=== PATIENT | male | born 1935 | race Caucasian/White ===

== ENCOUNTER → 2017-10-23 13:53 | Outpatient (CLI) | payer MEDICARE ==
[2013-01-07 11:31] VITALS: BMI 44.1
[~2017-10-23 13:53] MED LIST: BAYER CHEWABLE81 MG PO; CARDURA4 MG PO; CYCLOBENZAPRINE10 MG PO; EFFIENT10 MG PO; GABAPENTIN100 MG PO; HYDROCODON-ACE1 EAC7 PO; IBUPROFEN200 MG PO; KLOR-CON M2020 MEQ PO; LASIX40 MG PO; LEVOTHROID150 MCG PO; ZANTAC150 MG PO
== END | disposition home or self-care (01) ==
LOC: EDBD 13:53 → D.MRI 13:53
DX: M48.061 Spinal stenosis, lumbar region without neurogenic claudication (principal); G62.9 Polyneuropathy, unspecified

== ENCOUNTER 2017-11-05 08:46 | Emergency (ER) | payer MEDICARE ==
[2013-01-07 11:31] VITALS: BMI 44.1
[~2017-11-05 08:46] MED LIST changes: -CYCLOBENZAPRINE10 MG PO; -GABAPENTIN100 MG PO; -HYDROCODON-ACE1 EAC7 PO
[2017-11-07] MEDS ORDERED: CYCLOBENZAPRINE10 MG PO (07:43)
[2017-11-07] MEDS ORDERED: HYDROCODON-ACE1 EAC7 PO (07:46)
[2017-11-07] MEDS ORDERED: GABAPENTIN100 MG PO (07:48)
== END 2017-11-05 09:40 | disposition home or self-care (01) ==
LOC: EDBD 08:46 → D.ER 08:46
DX: M54.5 Low back pain (principal); M25.511 Pain in right shoulder; J44.9 Chronic obstructive pulmonary disease, unspecified; E07.9 Disorder of thyroid, unspecified

== ENCOUNTER 2018-03-24 09:26 | Inpatient (IN) | payer MEDICARE ==
[~2018-03-24] VITALS: Ht 177.8 cm; Wt 121.8 kg
--- NOTE | ~2018-03-24 | MORECARE ---
CASE MANAGEMENT DISCHARGE SUMMARY PATIENT: RASHAWN FAITH UNIT: [id number] ADM DATE: 03/24/18 AGE: 83 : 36 SEX: M ROOM/BED: [facility] AUTHOR: DANNYDOC PHYSICIAN: REFERRING PHYSICIAN: JANELLE OLIVEIRA MD DATE OF SERVICE: 03/30/18 Discharge Plan Patient Name: RASHAWN FAITH Facility: [facility]:[place] : 1935 Planned Disposition: Home or Self Care Anticipated Discharge Date: Discharge Date: Expected LOS: Initial Reviewer: [email or web address] Initial Review Date: 03/30/2018 Generated: 03/30/18 1:16 pm Comments DCP- Discharge Planning Updated by [email or web address]: Sandrine Singh on 03/30/18 11:[address] Patient Name: RASHAWN FAITH Admission Status: Elective Accout number: [id number] Admission Date: 03-24-2018 : 1935 Admission Diagnosis:ACUTE EMBOLISM AND THOMBOS UNSP DEEP VEINS OF R LOW EXT Attending: JANELLE OLIVEIRA Current LOS: 6 Anticipated DC Date: Planned Disposition: Home or Self Care Primary Insurance: MEDICARE A & B Discharge Planning Comments: CM met with patient at bedside after obtaining verbal consent. Patient states he plans on returning home after discharge with his family. Patient states he will have family transport him home via private vehicle. Patient denies any discharge needs at this time. CM will continue to follow and assist as needed for discharge planning / needs. Machine Greaser: Sandrine Singh DCPIA - Discharge Planning Initial Assessment Updated by [email or web address]: Sandrine Singh on 03/30/18 12:13 pm * Is the patient Alert and Oriented? Yes * How many steps to enter\exit or inside your home? 13 to bed * PCP * Pharmacy [facility] * Preadmission Environment Home with Family * ADLs Independent * Equipment Rolling Walker * Other Equipment cane * List name and contact numbers for known caregivers / representatives who currently or will assist patient after discharge: Sushma Faith daughter [phone] * Verbal permission to speak to the caregivers and representatives has been obtained from the patient. N/A * Community resources currently utilized None * Additional services required to return to the preadmission environment? No * Can the patient safely return to the preadmission environment? Yes * Has this patient been hospitalized within the prior 30 days at any hospital? No Patient Name: RASHAWN FAITH Page 40801 at 1216 All edits/amendments must be made on the electronic document DICTATION DATE: 03/30/181215 METERMAN: LISA 03/30/181215 RPT#: [id number] DC DATE: STATUS: ADM IN [facility] [address] [place] [address] END OF REPORT
--- NOTE | ~2018-03-24 | HP ---
PATIENT: RASHAWN WATSON MEDICAL RECORD: [id number] ACCOUNT: [id number] LOCATION:[address] : 37 ADMISSION DATE: 03/24/18 PCP: JANELLE OLIVEIRA MD HISTORY AND PHYSICAL EXAMINATION REASON FOR ADMISSION: Exertional shortness of breath. HISTORY OF PRESENT ILLNESS: The patient is an 83-year-old male with history of morbid obesity, who has had previous DVT and PE. He presented to the office today after a 6-day history of increasing edema of his right lower extremity and increasing dyspnea on exertion. He had a little chest pain as well when he would walk. Denied any hemoptysis. He states he had a nephew in town and has been sitting in a chair a quite a bit and his support hose had been very tight around his ankle. He was worried he might have another DVT. Denies any exertional chest pain. PAST MEDICAL HISTORY: Morbid obesity; remote history of massive pulmonary emboli, on chronic anticoagulation; history of coronary artery disease, post-PTCA of LAD and right coronary artery by Dr. 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 Lemus in October of this year. PAST SURGICAL HISTORY: PTCA of LAD and right coronary artery in 2012, penile implant, and retinal detachment with laser retinal therapy. ALLERGIES: None known. FAMILY HISTORY: Noncontributory. SOCIAL HISTORY: Lives with his , living with his daughter, who is an senior designer. He is retired. Nonsmoker and nondrinker currently. MEDICATIONS: Aspirin 81 mg a day, Flexeril 10 mg p.o. q. 8 hours p.r.n. lumbago, Effient 10 mg p.o. daily, doxazosin 4 mg p.o. daily, pravastatin 20 mg at bedtime, Neurontin 300 mg p.o. in the evening, [place] 5/325 one q. 4 hours for severe back pain, K-Dur 10 mEq p.o. daily, Lasix 40 mg p.o. q.a.m., Zantac 150 mg p.o. b.i.d., and levothyroxine 150 mcg p.o. q.a.m. REVIEW OF SYSTEMS: CONSTITUTIONAL: He has been fatigued, more so for the last week. No fever. HEENT: No recent visual change, sinus congestion, or sore throat. He has trouble hearing. RESPIRATORY: Increasing exertional dyspnea for the last 6 days. No hemoptysis, but he states he has little anterior chest pain in the lower sternal area, radiates right to left. Denies any radiation of pain into his neck, jaw, or arms. GASTROINTESTINAL: No nausea or vomiting. GENITOURINARY: He has mild nocturia. No dysuria. ENDOCRINE: Denies polyuria, polydipsia, heat or cold intolerance. NEUROLOGIC: No history of stroke, TIA, or vascular headaches. MUSCULOSKELETAL: Chronic lumbago and sciatica, which are improved. Neurogenic claudication has improved. INTEGUMENT: He has had some increased edema and swelling of his right lower HISTORY AND PHYSICAL [id number] VOWELL,RASHAWN D extremity, below the knee. PHYSICAL EXAMINATION: VITAL SIGNS: Temperature 97.7, pulse 68, respirations 18, and blood pressure 120/76 with sat of 90% on room air. HEENT: Normocephalic. Eyes are clear. He is hard of hearing. NECK: No bruits, masses, or JVD. CHEST: Distant breath sounds without wheezes or rales. HEART: Regular rate without MGR. PMI appropriate. ABDOMEN: Morbidly obese and nontender throughout. Bowel sounds are active. GENITOURINARY: Shows penile implant. EXTREMITIES: He has 4+ pitting edema of his right lower extremity from the knee down. He has erythema of the distal mid calf to the foot. Left lower extremity shows 2+ edema. Homans' sign is positive on the right. LABORATORY DATA AND DIAGNOSTIC DATA: EKG; sinus rhythm, no acute changes. Chest x-ray; no acute abnormality. Venous Doppler shows noncompression of the right lower extremity at posterior tibial vein and a 3.6-cm Garcia's cyst noted. D-dimer is markedly elevated at 11.91. ASSESSMENT: DVT, right lower extremity, probable pulmonary embolus; renal azotemia; morbid obesity; history of CAD; hypothyroidism; and lumbar disc disease. PLAN: The patient is admitted for bed rest to telemetry. Supplemental O2. We will place on Lovenox 1 mg/kg subcutaneously q. 12 hours. Schedule CTA or V/Q scan. Pulmonary consult if indicated. TRANSINT:[id number] Voice Confirmation ID: [id number] DOCUMENT ID: [id number] JANELLE OLIVEIRA MD at 0502 CC: [id number] DICTATION DATE: 03/24/18 173 MUNICIPAL FIREFIGHTER: 03/24/18 1904 ADM IN [facility] [address] [place] [id number]
--- NOTE | ~2018-03-24 | MORECARE ---
CASE MANAGEMENT DISCHARGE SUMMARY PATIENT: RASHAWN FAITH UNIT: [id number] ADM DATE: 03/24/18 AGE: 83 : 36 SEX: M ROOM/BED: [facility] AUTHOR: NADIA DELGADO PHYSICIAN: REFERRING PHYSICIAN: JANELLE MARK MD DATE OF SERVICE: 04/01/18 Discharge Plan Patient Name: RASHAWN FAITH Facility: [facility]:[place] : 1935 Planned Disposition: Home or Self Care Anticipated Discharge Date: Discharge Date: 04/01/2018 Expected LOS: Initial Reviewer: [email or web address] Initial Review Date: 03/30/2018 Generated: 04/01/18 3:54 pm Comments DCP- Discharge Planning Updated by [email or web address]: Sandrine Singh on 04/01/18 9:[address] IMM EXPLAINED AND SERVED @10:20 04/01/18. PLAN TO DISCHARGE TO INPATIENT REHAB TODAY. CM WILL CONTINUE TO FOLLOW AND ASSIST NEEDED WITH DISCHARGE PLANNING / NEEDS DCP- Discharge Planning Updated by [email or web address]: Sandrine Singh on 03/31/18 5:[address] Late Entry 03/31/18 @ 1345 CM spoke Sabrina with Inpatient Rehab that patient had been accepted for Rehab. Patient eager to transfer to rehab. CM called and left Message at Dr. Mark's office about approval. Awaiting discharge orders to Rehab. CM will continue to follow and assist as needed with discharge planning / needs. DCP- Discharge Planning Updated by [email or web address]: Sandrine Singh on 03/30/18 11:[address] Patient Name: RASHAWN FAITH Admission Status: Elective Accout number: [id number] Admission Date: 03-24-2018 : 1935 Admission Diagnosis:ACUTE EMBOLISM AND THOMBOS UNSP DEEP VEINS OF R LOW EXT Attending: JANELLE MARK Current LOS: 6 Anticipated DC Date: Planned Disposition: Home or Self Care Primary Insurance: MEDICARE A & B Discharge Planning Comments: CM met with patient at bedside after obtaining verbal consent. Patient states he plans on returning home after discharge with his family. Patient states he will have family transport him home via private vehicle. Patient denies any discharge needs at this time. CM will continue to follow and assist as needed for discharge planning / needs. Priming Powder Premix Blender: Sandrine Singh DCPIA - Discharge Planning Initial Assessment Updated by [email or web address]: Sandrine Singh on 03/30/18 12:13 pm * Is the patient Alert and Oriented? Yes * How many steps to enter\exit or inside your home? 13 to bed * PCP Peruvian * Pharmacy [facility] * Preadmission Environment Home with Family * ADLs Independent * Equipment Rolling Walker * Other Equipment cane * List name and contact numbers for known caregivers / representatives who currently or will assist patient after discharge: Sushma Faith daughter [phone] * Verbal permission to speak to the caregivers and representatives has been obtained from the patient. N/A * Community resources currently utilized None * Additional services required to return to the preadmission environment? No * Can the patient safely return to the preadmission environment? Yes * Has this patient been hospitalized within the prior 30 days at any hospital? No Coverage Notice Reviewer: [id number] - Sandrine Singh Notice Issued Date-Time: 04/01/2018 10:20 Notice Type: IM Discharge Notice Notice Delivered To: Patient Relationship to Patient: Self Box Finisher Name: Delivery Method: HAND - Hand Delivered Radha Days: Prior Verbal Notification: Recipient Understood Notice: Yes Recipient Signature: Yes Med Rec Note Co-signed by Attending: Coverage Notice Comment: Last DP export: 04/01/18 9:39 Patient Name: RASHAWN FAITH Page 11591 at 1455 All edits/amendments must be made on the electronic document DICTATION DATE: 04/01/181453 QUALITY ASSURANCE TECHNICIAN: LISA 04/01/181453 RPT#: [id number] DC DATE:04/01/18 STATUS: DIS IN [facility] [address] [place] [address] END OF REPORT
--- NOTE | ~2018-03-24 | MORECARE ---
CASE MANAGEMENT DISCHARGE SUMMARY PATIENT: RASHAWN FAITH UNIT: [id number] ADM DATE: 03/24/18 AGE: 83 : 36 SEX: M [facility] AUTHOR: NADIA DELGADO PHYSICIAN: REFERRING PHYSICIAN: JANELLE MARK MD DATE OF SERVICE: 03/31/18 Discharge Plan Patient Name: RASHAWN FAITH Facility: [facility]:[place] : 1935 Planned Disposition: Home or Self Care Anticipated Discharge Date: Discharge Date: Expected LOS: Initial Reviewer: [email or web address] Initial Review Date: 03/30/2018 Generated: 03/31/18 7:11 pm Comments DCP- Discharge Planning Updated by [email or web address]: Sandrine Singh on 03/31/18 5:[address] Late Entry 03/31/18 @ 1345 CM spoke Sabrina with Inpatient Rehab that patient had been accepted for Rehab. Patient eager to transfer to rehab. CM called and left Message at Dr. Mark's office about approval. Awaiting discharge orders to Rehab. CM will continue to follow and assist as needed with discharge planning / needs. DCP- Discharge Planning Updated by [email or web address]: Sandrine Singh on 03/30/18 11:[address] Patient Name: RASHAWN FAITH Admission Status: Elective Accout number: [id number] Admission Date: 03-24-2018 : 1935 Admission Diagnosis:ACUTE EMBOLISM AND THOMBOS UNSP DEEP VEINS OF R LOW EXT Attending: JANELLE MARK Current LOS: 6 Anticipated DC Date: Planned Disposition: Home or Self Care Primary Insurance: MEDICARE A & B Discharge Planning Comments: CM met with patient at bedside after obtaining verbal consent. Patient states he plans on returning home after discharge with his family. Patient states he will have family transport him home via private vehicle. Patient denies any discharge needs at this time. CM will continue to follow and assist as needed for discharge planning / needs. Aerospace Mechanic: Sandrine Singh DCPIA - Discharge Planning Initial Assessment Updated by [email or web address]: Sandrine Singh on 03/30/18 12:13 pm * Is the patient Alert and Oriented? Yes * How many steps to enter\exit or inside your home? 13 to bed * PCP Uzbek * Pharmacy [facility] * Preadmission Environment Home with Family * ADLs Independent * Equipment Rolling Walker * Other Equipment cane * List name and contact numbers for known caregivers / representatives who currently or will assist patient after discharge: Sushma Faith daughter [phone] * Verbal permission to speak to the caregivers and representatives has been obtained from the patient. N/A * Community resources currently utilized None * Additional services required to return to the preadmission environment? No * Can the patient safely return to the preadmission environment? Yes * Has this patient been hospitalized within the prior 30 days at any hospital? No Last DP export: 03/30/18 11:16 Patient Name: RASHAWN FAITH Page 51420 at 1812 All edits/amendments must be made on the electronic document DICTATION DATE: 03/31/181810 DRILLING FIELD PROFESSIONAL: LISA 03/31/181810 RPT#: [id number] DC DATE: STATUS: ADM IN [facility] [address] [place] [address] END OF REPORT
--- NOTE | ~2018-03-24 | MORECARE ---
CASE MANAGEMENT DISCHARGE SUMMARY PATIENT: RASHAWN FAITH UNIT: [id number] ADM DATE: 03/24/18 AGE: 83 : 36 SEX: M [facility] AUTHOR: NADIA DELGADO PHYSICIAN: REFERRING PHYSICIAN: JANELLE MARK MD DATE OF SERVICE: 04/01/18 Discharge Plan Patient Name: RASHAWN FAITH Facility: [facility]:[place] : 1935 Planned Disposition: Home or Self Care Anticipated Discharge Date: Discharge Date: Expected LOS: Initial Reviewer: [email or web address] Initial Review Date: 03/30/2018 Generated: 04/01/18 11:39 am Comments DCP- Discharge Planning Updated by [email or web address]: Sandrine Singh on 04/01/18 9:[address] IMM EXPLAINED AND SERVED @10:20 04/01/18. PLAN TO DISCHARGE TO INPATIENT REHAB TODAY. CM WILL CONTINUE TO FOLLOW AND ASSIST NEEDED WITH DISCHARGE PLANNING / NEEDS DCP- Discharge Planning Updated by [email or web address]: Sandrine Singh on 03/31/18 5:[address] Late Entry 03/31/18 @ 1345 CM spoke Sabrina with Inpatient Rehab that patient had been accepted for Rehab. Patient eager to transfer to rehab. CM called and left Message at Dr. Mark's office about approval. Awaiting discharge orders to Rehab. CM will continue to follow and assist as needed with discharge planning / needs. DCP- Discharge Planning Updated by [email or web address]: Sandrine Singh on 03/30/18 11:[address] Patient Name: RASHAWN FAITH Admission Status: Elective Accout number: [id number] Admission Date: 03-24-2018 : 1935 Admission Diagnosis:ACUTE EMBOLISM AND THOMBOS UNSP DEEP VEINS OF R LOW EXT Attending: JANELLE MARK Current LOS: 6 Anticipated DC Date: Planned Disposition: Home or Self Care Primary Insurance: MEDICARE A & B Discharge Planning Comments: CM met with patient at bedside after obtaining verbal consent. Patient states he plans on returning home after discharge with his family. Patient states he will have family transport him home via private vehicle. Patient denies any discharge needs at this time. CM will continue to follow and assist as needed for discharge planning / needs. Speech Teacher: Sandrine Singh DCPIA - Discharge Planning Initial Assessment Updated by [id number]: Sandrine Singh on 03/30/18 12:13 pm * Is the patient Alert and Oriented? Yes * How many steps to enter\exit or inside your home? 13 to bed * PCP [place] Zealander * Pharmacy [facility] * Preadmission Environment Home with Family * ADLs Independent * Equipment Rolling Walker * Other Equipment cane * List name and contact numbers for known caregivers / representatives who currently or will assist patient after discharge: Sushma Faith daughter [phone] * Verbal permission to speak to the caregivers and representatives has been obtained from the patient. N/A * Community resources currently utilized None * Additional services required to return to the preadmission environment? No * Can the patient safely return to the preadmission environment? Yes * Has this patient been hospitalized within the prior 30 days at any hospital? No Coverage Notice Reviewer: [id number] - Sandrine Singh Notice Issued Date-Time: 04/01/2018 10:20 Notice Type: IM Discharge Notice Notice Delivered To: Patient Relationship to Patient: Self Financial Assistance Advisor Name: Delivery Method: HAND - Hand Delivered Radha Days: Prior Verbal Notification: Recipient Understood Notice: Yes Recipient Signature: Yes Med Rec Note Co-signed by Attending: Coverage Notice Comment: Last DP export: 03/31/18 5:12 Patient Name: RASHAWN FAITH Page 96124 at 1039 All edits/amendments must be made on the electronic document DICTATION DATE: 04/01/18 1039 REPERTOIRE MANAGER: LISA 04/01/18 1039 RPT#: [id number] DC DATE: STATUS: ADM IN [place] [id number] [place] [address] END OF REPORT
--- NOTE | ~2018-03-24 | HEMODYNAMI ---
PATIENT:RASHAWN WATSON MEDICAL RECORD: [id number] : 37 [address] [id number] ADMISSION DATE: 03/24/18 Generatedon:03/25/201817:12 Patient name: RASHAWN WATSON Patient #: [id number] SSN: : 1935 Date of study: 03/25/2018 Page: Of Hemodynamic Procedure Report Patient Data Patient Demographics Procedure consent was obtained First Name: RASHAWN Gender: Male Last Name: WALTER : 1935 Middle Initial: D Age: 83 year(s) Patient #: [id number] Race: Unknown Additional ID: [id number] Contact details [address]: [address] [place] [address] COURT State: [place] City: [place] Zip code: [address] Past Medical History Allergies: No known allergies Admission Admission Data Admission Date: 03/24/2018 Admission Time: 9:26 Room #: [facility] Procedure Procedure Types Cath Procedure Peripheral Cath Diagnostic Procedure Venography IVC/SVC Inferior Venacava Filter Procedure Description Procedure Date Procedure Date: 03/25/2018 Procedure Start Time: 16:42 Procedure Staff Name Function Cali Bond MD Performing Physician Malachi Goins RT Monitor Altagracia Maldonadoub Amalia Quach RN Nurse Procedure Data Cath Procedure Fluoroscopy Diagnostic fluoroscopy Total fluoroscopy Time: 1.7 time: 1.7 min min Diagnostic fluoroscopy Total fluoroscopy dose: 356 dose: 356 mGy mGy Contrast Material Contrast Material Type Amount (ml) Isovue 300 40 Procedure Medications Medication Administration Route Dosage Heparin Flush Bag added to field 1 bags (1000units/500ml NS) Lidocaine 1% added to field 20 Oxygen etCO2 Nasal cannula 3 l/min Fentanyl I.V. 100 mcg Fentanyl I.V. 100 mcg Hemodynamics Rest Heart Rate: 77 (bpm) Snapshots Pre Cath Intra NCS Post Cath Vital Signs Time Heart Resp SPO2 etCO2 NIBP (mmHg) Rhythm Pain Sedation Rate (ipm) (%) (mmHg) Status Level (bpm) 16:37:50 75 23 98 25.3 156/78(107) NSR 0 (11) 10(A) , No pain 16:42:21 76 25 99 24.6 155/84(103) NSR 0 (11) 10(A) , No pain 16:46:51 75 22 100 29.1 147/82(110) NSR 0 (11) 10(A) , No pain 16:51:15 75 16 96 33.6 155/89(119) NSR 0 (11) 10(A) , No pain 16:55:41 80 14 95 33.6 172/94(140) NSR 0 (11) 8(A) , No pain 17:00:08 78 11 96 24.6 167/93(124) NSR 0 (11) 8(A) , No pain 17:04:40 74 14 96 32.8 154/87(137) NSR 0 (11) 8(A) , No pain 17:09:19 74 10 97 28.3 158/66(88) NSR 0 (11) 8(A) , No pain Medications Time Medication Route Dose Verified Delivered Reason Notes Effe ctiveness by by 16:38:08 Heparin Flush added 1 M J Long M J Long used for Bag to bags MD SUAREZ procedure (1000units/500ml field NS) 16:38:21 Lidocaine 1% added 20ml M J Long M J Long used for to vial MD SUAREZ procedure field 16:38:39 Oxygen etCO2 3 M J Long Amalia used for Nasal l/min MD Main VALERIO procedure cannula 16:48:13 Fentanyl I.V. 100 M J Long Amalia for back mcg MD Quach RN pain 16:51:38 Fentanyl I.V. 100 M J Long Amalia for back mcg MD Main VALERIO pain Procedure Log Time Note 16:22:41 Malachi Goins RT (R) () sent for patient. Start room use. 16:22:51 Time tracking: Regular hours (M-F 7:00 - 5:00) 16:22:57 Plan of Care:Hemodynamics will remain stable., Cardiac rhythm will remain stable., Comfort level will be maintained., Respiratory function will remain adequate., Patient/ family verbilizes understanding of procedure., Procedure tolerated without complication., Recovers from procedure without complications.. 16:23:04 [facility] Alert and oriented. Tansferred to table in Supine position. 16:23:06 Correct patient and procedure confirmed by team. 16:23:08 Signed procedure consent form obtained from patient. 16:23:10 Full Disclosure recording started 16:23:11 - 16:23:15 H&P Date Dictated: 03/25/2018 Within 30 days and on chart.. 16:23:16 Pre-procedure instructions explained to patient. 16:23:16 Pre-op teaching completed and patient verbalized understanding. 16:23:18 Family in waiting room. 16:23:20 Patient NPO since Breakfast. 16:23:50 Patient allergic to No known allergies 16:23:52 Is the patient allergic to Iodine/contrast media? No. 16:23:53 Is patient on blood thinner?Yes 16:23:56 ACC The patient was administered the following blood thiners within the last 24 hours: ACCLovenox 16:24:03 Patient diabetic? No. 16:24:04 - 16:24:05 ----Pre-sedation anethsthesia assessment.---- 16:24:14 Previous problem with sedation/anesthesia? No ? 16:24:15 Snore? Yes 16:24:17 Sleep apnea? No 16:24:22 Deviated septum? No 16:24:24 Opens mouth fully? Yes 16:24:26 Sticks out tongue? Yes 16:24:32 Airway obstruction? Yes pe 16:24:38 Dentures? Yes upper 16:24:43 - 16:24:49 Patient pain scale 0/10 no pain. 16:24:51 Sharps counted by scrub and verified by R.N. 16:24:52 Alarms reviewed by RLuciano N. 16:24:55 Right groin area was prepped with chlora-prep and draped in sterile fashion 16:24:59 Use device set IR Diagnostic 16:25:00 Bag Decanter (2002S) opened to sterile field. 16:25:01 Sterile Angiographic Pack opened to sterile field. 16:25:04 Tegaderm 4 x 4 ([id number]) opened to sterile field. 16:25:39 IV patent on arrival in right hand with 0.9% NaCl at KVO. 16:36:20 ECG and BP/O2 sat monitors applied to patient. 16:36:21 Vital chart was started 16:36:22 Baseline sample Acquired. 16:38:08 Heparin Flush Bag (1000units/500ml NS) 1 bags added to field was administered by Cali Bond MD; used for procedure; 16:38:21 Lidocaine 1% 20ml vial added to field was administered by Cali Bond MD; used for procedure; 16:38:39 Oxygen 3 l/min etCO2 Nasal cannula was administered by Amalia Quach RN ; used for procedure; 16:42:11 Physician arrived 16:42:13 --------ALL STOP TIME OUT------ 16:42:13 Final Timeout: patient, procedure, and site verified with staff and physician. All members of the team are in agreement. 16:42:18 Right groin site verified by team. 16:42:27 Sedation plan: Local Anesthetic Medication:Lidocaine 16:42:35 Procedure started. 16:42:39 Local anesthetic to right femoral vein with Lidocaine 1% by Cali Bond MD.INITIAL ACCESS ONLY 16:48:13 Fentanyl 100 mcg I.V. was administered by Amalia Quach RN; for back pain; 16:49:43 DILATOR, VESSEL 8/20 opened to sterile field. 16:49:44 FILTER Iron Vena Cava ([id number]) opened to sterile field. 16:49:46 DOC .035 wire ([id number]) opened to sterile field. 16:49:47 Micropuncture VSI 4FR kit opened to sterile field. 16:51:30 DILATOR, VESSEL 10/20 opened to sterile field. 16:51:38 Fentanyl 100 mcg I.V. was administered by Amalia Quach RN; for back pain; 16:52:49 AMPLATZ Super stiff 180cm wire ([id number]) opened to sterile field. 16:59:02 Procedure ended.(Physican Out) 16:59:18 Fluoroscopy time 01.70 minutes. 16:59:23 Fluoroscopy dose: 356 mGy 16:59:23 Flurop Dose total: 356 17:00:04 Contrast amount:Isovue 300 40ml. 17:00:05 Sharps counted by scrub and verified by R.N. 17:00:07 Insertion/operative site no bleeding no hematoma. 17:00:11 Post-op/insertion site Right Femoral vein dressed using a 4 x 4 and Tegaderm. 17:00:16 Post right femoral vein:stable 17:00:39 Post procedure instruction explained to patient.Patient verbalizes understanding. 17:00:39 Procedure and supply charges have been captured, reviewed, submitted an d are correct. 17:11:30 Report given to CVICU. 17:11:34 Patient transfered to CVICU with Bed. 17:12:13 Vital chart was stopped Device Usage Item Name Manufacture Quantity Catalog Hospital Part Current Minima l Lot# / Number Charge Number Stock Stock Serial# Code Bag Decanter Microtek 1 [id number] [id number] [id number] 5 () [employer] Sterile Cardinal 1 [id number] [id number] 5 Angiographic Health Pack Tegaderm 4 x 3M 1 1626W 033811 923766 559390 5 4 (1626W) DILATOR, [employer] 1 [id number] 302406 93718 [id number] 5 VESSEL 8/20 FILTER Otilia Bard 1 [id number] 149549 [id number] 5 [id number] Vena Cava ([id number]) DOC .035 wire [employer] 1 [id number] 744461 092745 5 ([id number]) Micropuncture VSI VASCULAR 1 [id number] 473933 019643 5 VSI 4FR kit SOLUTIONS DILATOR, [facility] 1 [id number] 928751 63676 825974 5 VESSEL 04/04 AMPLATZ Super [place] 1 [id number] 597531 180912 442446 5 [id number] stiff 180cm Scientific wire ([id number]) Signature Audit [place] Stage Time Signature Unsigned Intra-Procedure 03/25/2018 Malachi 5:12:11 PM Buster RT (R) (CV) Signatures Monitor : Malachi Signature : Buster RT Date : Time : [address] [address]
[~2018-03-24 09:26] MED LIST changes: +CYCLOBENZAPRINE10 MG PO; +GABAPENTIN100 MG PO; +HYDROCODON-ACE1 EAC7 PO
[2018-03-24 10:39] VITALS: BP 128/76
[2018-03-24 11:40] VITALS: BP 128/76
[2018-03-24 12:59] LABS: BASOPHILS 0.3 % (0-2); EOSINOPHILS 0.3 % (0-7); HEMATOCRIT 37.2 % (42.0-54.0); HEMOGLOBIN 11.6 g/dL (13.5-17.5); IMMATURE GRANULOCYTES 3.8 % (0-5); LYMPHOCYTES 9.9 % (15-50); MCH 25.9 pg (26.0-34.0); MCHC 31.2 g/dL (31.0-37.0); MEAN PLATELET VOLUME 9.7 fL (7.4-10.4); MONOCYTES 4.4 % (2-11); NEUTROPHILS 81.3 % (40-80); RBC 4.48 10x6/uL (4.20-6.10); RDW 17.3 % (11.5-14.5); WBC 11.5 10x3/uL (4.8-10.8)
[2018-03-24 13:06] LABS: PLATELET COUNT 104 10x3/uL (130-400)
[2018-03-24 13:15] LABS: ALBUMIN 2.6 g/dL (3.4-5.0); ALKALINE PHOSPHATASE 51 U/L (46-116); ALT (SGPT) 19 U/L (10-68); BILIRUBIN - DIRECT 0.12 mg/dL (0.00-0.30); BILIRUBIN - INDIRECT 0.31 mg/dL (0.00-1.00); BILIRUBIN - TOTAL 0.43 mg/dL (0.2-1.3); CALC OSMOLALITY 287 mosm/kg (275-300); CALCIUM 8.3 mg/dL (8.5-10.1); CARBON DIOXIDE 24.8 mmol/L (21.0-32.0); CHLORIDE - SERUM 105 mmol/L (98-107); CKMB 1.5 U/L (0.0-3.6); CREATINE KINASE 30 UL (21-232); CREATININE - SERUM 1.7 mg/dL (0.6-1.3); GLUCOSE 124 mg/dL (74-106); POTASSIUM - SERUM 4.6 mmol/L (3.5-5.1); PRO BNP 413 pg/mL (0-450); PROTEIN - SERUM 5.6 g/dL (6.4-8.2); SODIUM 140 mmol/L (136-145); TROPONIN-I < 0.017 ng/mL (0.000-0.060); UREA NITROGEN 34 mg/dL (7-18); eGFR NON AFRICAN AMERICAN 41 mL/min (90-120)
[2018-03-24 13:53] LABS: PLATELET ESTIMATE DECREASED
[2018-03-24 16:11] VITALS: BP 118/65
[2018-03-24 20:21] VITALS: BP 129/50
[2018-03-24 22:10] LABS: APPEARANCE CLEAR (CLEAR); BILIRUBIN NEGATIVE (NEGATIVE); COLOR YELLOW (YELLOW); GLUCOSE NEGATIVE (NEGATIVE); KETONE NEGATIVE (NEGATIVE); NITRITE NEGATIVE (NEGATIVE); PROTEIN NEGATIVE (NEGATIVE); SPECIFIC GRAVITY 1.015 (1.005-1.020); UROBILINOGEN NORMAL (NORMAL)
[2018-03-25] VITALS (14 sets, daily range): BP systolic 92–150; BP diastolic 35–69; BMI 38.6
[2018-03-25 06:02] LABS: BASOPHILS 0.3 % (0-2); EOSINOPHILS 1.1 % (0-7); HEMATOCRIT 35.3 % (42.0-54.0); HEMOGLOBIN 11.1 g/dL (13.5-17.5); IMMATURE GRANULOCYTES 4.8 % (0-5); LYMPHOCYTES 22.9 % (15-50); MCH 26.3 pg (26.0-34.0); MCHC 31.4 g/dL (31.0-37.0); MCV 83.6 fL (80.0-100.0); MEAN PLATELET VOLUME 9.8 fL (7.4-10.4); MONOCYTES 7.8 % (2-11); NEUTROPHILS 63.1 % (40-80); RBC 4.22 10x6/uL (4.20-6.10); RDW 17.7 % (11.5-14.5); WBC 10.6 10x3/uL (4.8-10.8)
[2018-03-25 06:25] LABS: PLATELET COUNT 128 10x3/uL (130-400)
[2018-03-25 06:32] LABS: ANION GAP 14.4 mmol/L (8-16); CARBON DIOXIDE 27.8 mmol/L (21.0-32.0); CREATININE - SERUM 1.3 mg/dL (0.6-1.3); POTASSIUM - SERUM 4.2 mmol/L (3.5-5.1)
[2018-03-25 14:14] LABS: APTT 41.1 SECONDS (22.8-39.4); INR 1.25 (0.85-1.17); PROTIME 15.2 SECONDS (11.6-15.0)
[2018-03-26] VITALS (12 sets, daily range): BP systolic 98–143; BP diastolic 44–75
[2018-03-26 05:01] LABS: BASOPHILS 0.3 % (0-2); EOSINOPHILS 1.6 % (0-7); HEMATOCRIT 36.8 % (42.0-54.0); HEMOGLOBIN 11.4 g/dL (13.5-17.5); IMMATURE GRANULOCYTES 3.6 % (0-5); LYMPHOCYTES 18.3 % (15-50); MCH 25.9 pg (26.0-34.0); MCV 83.4 fL (80.0-100.0); MEAN PLATELET VOLUME 9.5 fL (7.4-10.4); MONOCYTES 8.8 % (2-11); NEUTROPHILS 67.4 % (40-80); PLATELET COUNT 123 10x3/uL (130-400); RBC 4.41 10x6/uL (4.20-6.10); RDW 17.3 % (11.5-14.5); WBC 8.8 10x3/uL (4.8-10.8)
[2018-03-26 05:20] LABS: % SATURATION 23 % (15-55); IRON 77 ug/dl (35-150); TOTAL IRON BIND CAPACITY 324 ug/dl (260-445); UNSAT IRON BIND CAPACITY 247 ug/dl (150-375)
[2018-03-26 05:33] LABS: ANION GAP 10.8 mmol/L (8-16); CALCIUM 7.9 mg/dL (8.5-10.1); CARBON DIOXIDE 28.2 mmol/L (21.0-32.0); CREATININE - SERUM 1.2 mg/dL (0.6-1.3)
[2018-03-27] VITALS (7 sets, daily range): BP systolic 121–153; BP diastolic 56–81
[2018-03-27 06:48] LABS: BASOPHILS 0.2 % (0-2); EOSINOPHILS 2.6 % (0-7); HEMATOCRIT 35.8 % (42.0-54.0); HEMOGLOBIN 11.2 g/dL (13.5-17.5); LYMPHOCYTES 16.2 % (15-50); MCH 25.9 pg (26.0-34.0); MCHC 31.3 g/dL (31.0-37.0); MCV 82.7 fL (80.0-100.0); MEAN PLATELET VOLUME 9.5 fL (7.4-10.4); PLATELET COUNT 112 10x3/uL (130-400); RBC 4.33 10x6/uL (4.20-6.10); RDW 17.3 % (11.5-14.5); WBC 8.1 10x3/uL (4.8-10.8)
[2018-03-27 07:03] LABS: ALBUMIN 2.5 g/dL (3.4-5.0); ANION GAP 11.1 mmol/L (8-16); BILIRUBIN - TOTAL 0.86 mg/dL (0.2-1.3); CALCIUM 7.9 mg/dL (8.5-10.1); CARBON DIOXIDE 25.8 mmol/L (21.0-32.0); CREATININE - SERUM 1.1 mg/dL (0.6-1.3); POTASSIUM - SERUM 3.9 mmol/L (3.5-5.1); PROTEIN - SERUM 5.7 g/dL (6.4-8.2)
[2018-03-27 13:18] LABS: ACLA - IGG AB <9 GPL U/mL (0-14); ACLA - IGM AB 10 MPL U/mL (0-12)
[2018-03-28 03:00] VITALS: BP 133/58
[2018-03-28 06:40] LABS: BASOPHILS 0.2 % (0-2); EOSINOPHILS 2.2 % (0-7); HEMATOCRIT 33.4 % (42.0-54.0); HEMOGLOBIN 10.4 g/dL (13.5-17.5); IMMATURE GRANULOCYTES 4.1 % (0-5); LYMPHOCYTES 17.5 % (15-50); MCH 25.7 pg (26.0-34.0); MCHC 31.1 g/dL (31.0-37.0); MCV 82.7 fL (80.0-100.0); MEAN PLATELET VOLUME 9.5 fL (7.4-10.4); MONOCYTES 11.9 % (2-11); NEUTROPHILS 64.1 % (40-80); PLATELET COUNT 118 10x3/uL (130-400); RBC 4.04 10x6/uL (4.20-6.10); RDW 17.7 % (11.5-14.5); WBC 8.6 10x3/uL (4.8-10.8)
[2018-03-28 06:57] LABS: ALBUMIN 2.3 g/dL (3.4-5.0); ALKALINE PHOSPHATASE 43 U/L (46-116); BILIRUBIN - TOTAL 0.62 mg/dL (0.2-1.3); CALC OSMOLALITY 277 mosm/kg (275-300); CALCIUM 7.7 mg/dL (8.5-10.1); CARBON DIOXIDE 24.1 mmol/L (21.0-32.0); CHLORIDE - SERUM 106 mmol/L (98-107); GLUCOSE 92 mg/dL (74-106); POTASSIUM - SERUM 3.9 mmol/L (3.5-5.1); PROTEIN - SERUM 5.1 g/dL (6.4-8.2); SODIUM 139 mmol/L (136-145); UREA NITROGEN 12 mg/dL (7-18); eGFR NON AFRICAN AMERICAN 76 mL/min (90-120)
[2018-03-28 06:59] LABS: ALT (SGPT) 19 U/L (10-68)
[2018-03-28 08:00] VITALS: BP 123/57
[2018-03-28 12:00] VITALS: BP 139/71
[2018-03-28 12:12] LABS: PROTEIN S - FREE 141 % (57-157); PROTEIN S - TOTAL 108 % (60-150)
[2018-03-28 14:12] LABS: PROTEIN S - FREE 131 % (57-157); PROTEIN S - FUNCTIONAL 109 % (63-140); PROTEIN S - TOTAL 136 % (60-150)
[2018-03-28 16:00] VITALS: BP 116/47
[2018-03-28 19:00] VITALS: BP 109/71
[2018-03-28 23:00] VITALS: BP 108/38
[2018-03-29 03:00] VITALS: BP 97/45
[2018-03-29 05:57] LABS: BASOPHILS 0.4 % (0-2); EOSINOPHILS 2.8 % (0-7); HEMATOCRIT 35.8 % (42.0-54.0); HEMOGLOBIN 11.1 g/dL (13.5-17.5); IMMATURE GRANULOCYTES 3.9 % (0-5); LYMPHOCYTES 18.7 % (15-50); MCH 25.8 pg (26.0-34.0); MCV 83.3 fL (80.0-100.0); MEAN PLATELET VOLUME 10.3 fL (7.4-10.4); MONOCYTES 12.5 % (2-11); NEUTROPHILS 61.7 % (40-80); PLATELET COUNT 140 10x3/uL (130-400); RDW 18.1 % (11.5-14.5); WBC 7.9 10x3/uL (4.8-10.8)
[2018-03-29 06:14] LABS: CALC OSMOLALITY 274 mosm/kg (275-300); CHLORIDE - SERUM 105 mmol/L (98-107); GLUCOSE 97 mg/dL (74-106); POTASSIUM - SERUM 3.9 mmol/L (3.5-5.1); SODIUM 138 mmol/L (136-145); UREA NITROGEN 9 mg/dL (7-18); eGFR NON AFRICAN AMERICAN 76 mL/min (90-120)
[2018-03-29 08:00] VITALS: BP 128/62
[2018-03-29 12:00] VITALS: BP 112/65
[2018-03-29 16:00] VITALS: BP 125/65
[2018-03-29 19:15] VITALS: BP 122/54
[2018-03-29 23:03] VITALS: BP 104/50
[2018-03-30 03:00] VITALS: BP 93/42
[2018-03-30 04:31] LABS: BASOPHILS 0.3 % (0-2); EOSINOPHILS 2.8 % (0-7); HEMATOCRIT 33.6 % (42.0-54.0); HEMOGLOBIN 10.5 g/dL (13.5-17.5); IMMATURE GRANULOCYTES 3.7 % (0-5); LYMPHOCYTES 22.5 % (15-50); MCH 25.8 pg (26.0-34.0); MCHC 31.3 g/dL (31.0-37.0); MCV 82.6 fL (80.0-100.0); MEAN PLATELET VOLUME 9.8 fL (7.4-10.4); MONOCYTES 12.2 % (2-11); NEUTROPHILS 58.5 % (40-80); PLATELET COUNT 161 10x3/uL (130-400); RBC 4.07 10x6/uL (4.20-6.10); RDW 18.1 % (11.5-14.5); WBC 7.1 10x3/uL (4.8-10.8)
[2018-03-30 04:55] LABS: CALC OSMOLALITY 279 mosm/kg (275-300); CALCIUM 7.8 mg/dL (8.5-10.1); CARBON DIOXIDE 24.8 mmol/L (21.0-32.0); CHLORIDE - SERUM 107 mmol/L (98-107); CREATININE - SERUM 0.9 mg/dL (0.6-1.3); GLUCOSE 91 mg/dL (74-106); POTASSIUM - SERUM 3.6 mmol/L (3.5-5.1); SODIUM 141 mmol/L (136-145); UREA NITROGEN 9 mg/dL (7-18); eGFR NON AFRICAN AMERICAN 86 mL/min (90-120)
[2018-03-30 07:00] VITALS: BP 108/66
[2018-03-30 12:00] VITALS: BP 112/47
[2018-03-30 12:26] VITALS: Ht 177.8 cm; Wt 121.8 kg
[2018-03-30 14:16] LABS: PROTEIN C - ANTIGEN 126 % (60-150); PROTEIN C - FUNCTIONAL 127 % (73-180)
[2018-03-30 17:14] VITALS: BP 126/40
[2018-03-30 18:53] VITALS: BP 137/56
[2018-03-30 20:01] VITALS: BP 118/46
[2018-03-30 20:25] LABS: CALCIUM 8.1 mg/dL (8.5-10.1); CHLORIDE - SERUM 106 mmol/L (98-107); CREATININE - SERUM 0.9 mg/dL (0.6-1.3); POTASSIUM - SERUM 5.3 mmol/L (3.5-5.1); SODIUM 135 mmol/L (136-145); eGFR NON AFRICAN AMERICAN 86 mL/min (90-120)
[2018-03-30 20:39] LABS: CALC OSMOLALITY 271 mosm/kg (275-300); CARBON DIOXIDE 18.2 mmol/L (21.0-32.0); GLUCOSE 137 mg/dL (74-106); UREA NITROGEN 12 mg/dL (7-18)
[2018-03-31] VITALS: BP 109/47
[2018-03-31 04:00] VITALS: BP 118/51
[2018-03-31 04:55] LABS: CALCIUM 7.7 mg/dL (8.5-10.1); CHLORIDE - SERUM 105 mmol/L (98-107); GLUCOSE 91 mg/dL (74-106); SODIUM 139 mmol/L (136-145); eGFR NON AFRICAN AMERICAN 76 mL/min (90-120)
[2018-03-31 04:57] LABS: BASOPHILS 0.4 % (0-2); EOSINOPHILS 3.2 % (0-7); HEMATOCRIT 32.6 % (42.0-54.0); IMMATURE GRANULOCYTES 2.5 % (0-5); LYMPHOCYTES 18.7 % (15-50); MCH 25.6 pg (26.0-34.0); MCHC 30.7 g/dL (31.0-37.0); MCV 83.4 fL (80.0-100.0); MEAN PLATELET VOLUME 9.8 fL (7.4-10.4); MONOCYTES 14.5 % (2-11); NEUTROPHILS 60.7 % (40-80); RBC 3.91 10x6/uL (4.20-6.10); RDW 18.4 % (11.5-14.5); WBC 7.9 10x3/uL (4.8-10.8)
[2018-03-31 04:59] LABS: CALC OSMOLALITY 275 mosm/kg (275-300); CARBON DIOXIDE 24.6 mmol/L (21.0-32.0); POTASSIUM - SERUM 3.4 mmol/L (3.5-5.1); UREA NITROGEN 8 mg/dL (7-18)
[2018-03-31 05:02] LABS: PLATELET COUNT 194 10x3/uL (130-400)
[2018-03-31 06:15] LABS: HEXAGONAL PHASE PHOS 13 sec (0-11); LUPUS - INTERPRETATION Comment: (()); PTT-LA MIX 52.3 sec (0.0-48.9)
[2018-03-31 08:00] VITALS: BP 121/55
[2018-03-31 11:00] VITALS: BP 126/52
[2018-03-31 15:00] VITALS: BP 126/52
[2018-03-31] MEDS ORDERED: IPRAT-ALBUT 0.5-3 ML UPD (17:17)
[2018-03-31] MEDS ORDERED: MAXIPIME 1 GM/D51 G1 IV (17:17)
[2018-03-31] MEDS ORDERED: NITROQUICK0.4 MG SL (17:18)
[2018-03-31] MEDS ORDERED: LOPRESSOR25 MG PO (17:18)
[2018-03-31] MEDS ORDERED: PRAVACHOL20 MG PO (17:18)
[2018-03-31] MEDS ORDERED: XARELTO15 MG PO (17:18)
[2018-03-31] MEDS ORDERED: NEURONTIN 300300 MG PO (17:19)
[2018-03-31] MEDS ORDERED: MUCINEX DM ER1 EAC1 PO (17:20)
[2018-03-31] MEDS ORDERED: PEPCID PO (17:20)
[2018-03-31 20:26] VITALS: BP 118/32
[2018-03-31 21:08] LABS: FACTOR II DNA ANALYSIS Negative (())
[2018-04-01] VITALS: BP 111/45
[2018-04-01 04:01] VITALS: BP 115/51
[2018-04-01 04:42] LABS: BASOPHILS 0.1 % (0-2); EOSINOPHILS 4.2 % (0-7); HEMATOCRIT 31.2 % (42.0-54.0); HEMOGLOBIN 9.6 g/dL (13.5-17.5); IMMATURE GRANULOCYTES 1.8 % (0-5); LYMPHOCYTES 18.7 % (15-50); MCH 25.7 pg (26.0-34.0); MCHC 30.8 g/dL (31.0-37.0); MCV 83.6 fL (80.0-100.0); MEAN PLATELET VOLUME 9.7 fL (7.4-10.4); MONOCYTES 12.4 % (2-11); NEUTROPHILS 62.8 % (40-80); PLATELET COUNT 202 10x3/uL (130-400); RBC 3.73 10x6/uL (4.20-6.10); RDW 18.2 % (11.5-14.5); WBC 7.2 10x3/uL (4.8-10.8)
[2018-04-01 05:02] LABS: CALC OSMOLALITY 272 mosm/kg (275-300); CALCIUM 7.5 mg/dL (8.5-10.1); CARBON DIOXIDE 23.6 mmol/L (21.0-32.0); CHLORIDE - SERUM 106 mmol/L (98-107); GLUCOSE 88 mg/dL (74-106); POTASSIUM - SERUM 3.5 mmol/L (3.5-5.1); SODIUM 138 mmol/L (136-145); UREA NITROGEN 8 mg/dL (7-18); eGFR NON AFRICAN AMERICAN 76 mL/min (90-120)
[2018-04-01 07:00] VITALS: BP 107/47
[2018-04-01 11:00] VITALS: BP 113/62
== END 2018-04-01 12:47 | DRG 166 ==
LOC: D.CVICU 09:26 → D.M2 09:26 → D.SDCHOLD 09:26 → D.M2 09:32 → D.CVICU 03-25 14:26
PROVIDERS: Family Medicine; Internal Medicine Pulmonary Disease; Radiology Vascular & Interventional Radiology
PROC: 06H03DZ Insertion of Intraluminal Device into Inferior Vena Cava, Percutaneous Approach (ICD-10-PCS; 2018-03-25)
PROC: B5191ZZ Fluoroscopy of Inferior Vena Cava using Low Osmolar Contrast (ICD-10-PCS; principal; 2018-03-25 16:15)
DX: I26.99 Other pulmonary embolism without acute cor pulmonale (principal); J18.9 Pneumonia, unspecified organism; I82.401 Acute embolism and thrombosis of unspecified deep veins of right lower extremity; J98.11 Atelectasis; I12.9 Hypertensive chronic kidney disease with stage 1 through stage 4 chronic kidney disease, or unspecified chronic kidney disease; N18.9 Chronic kidney disease, unspecified; E78.5 Hyperlipidemia, unspecified; N40.0 Benign prostatic hyperplasia without lower urinary tract symptoms; E03.9 Hypothyroidism, unspecified; Z79.01 Long term (current) use of anticoagulants; E66.01 Morbid (severe) obesity due to excess calories; D64.9 Anemia, unspecified; M48.02 Spinal stenosis, cervical region; I25.10 Atherosclerotic heart disease of native coronary artery without angina pectoris; K21.9 Gastro-esophageal reflux disease without esophagitis; Z68.38 Body mass index [BMI] 38.0-38.9, adult; I48.0 Paroxysmal atrial fibrillation; D69.6 Thrombocytopenia, unspecified; Y95 Nosocomial condition

== ENCOUNTER 2018-04-01 13:46 | Inpatient (IN) | payer MEDICARE ==
[~2018-04-01] VITALS: Ht 177.8 cm; Wt 121.6 kg
--- NOTE | ~2018-04-01 | RHP ---
PATIENT: RASHAWN WATSON MEDICAL RECORD: [id number] ACCOUNT: [id number] LOCATION:[facility]1110 : 37 ADMISSION DATE: 04/01/18 REHABILITATION HISTORY AND PHYSICAL EXAMINATION POST ADMISSION PHYSICIAN EXAMINATION DATE OF ADMISSION: 04/01/2018 ADMITTING DIAGNOSES: Debility secondary to deep venous thrombosis and pulmonary embolus. HISTORY OF PRESENT ILLNESS: The patient is an 83-year-old gentleman who is admitted to the rehab secondary to a DVT and pulmonary embolus. The patient is morbidly obese, presented to his primary care physician's office with a 6-day history of increasing edema in his right lower extremity and increasing dyspnea with exertion. He had a little bit of chest pain when he walks. He had previous DVT and PE and was concerned that he might be developing another. He has got a history of coronary artery disease. He is on Effient and also aspirin. He has got a history of BPH, hypothyroidism, hypertension, hyperlipidemia, pneumonia, cervical and lumbar stenosis with lower extremity weakness and pain. He was admitted to the [facility] for shortness of breath and chest pain. CTA showed an extensive pulmonary thrombus extending through his right lung with extension in the right main pulmonary artery as well as a left upper lobe. Dopplers are positive for right lower extremity posterior tibial DVT. The patient has got a prior history of massive pulmonary thromboembolus 10 years ago, was treated with anticoagulation. Echocardiogram showed an EF of 60%. He is currently not wearing oxygen, but has been on 2 liters of nasal cannula. He does have increasing shortness of breath with any type of exertion. He is on telemetry, he had some AFib on and off. He has had multiple PEs and DVTs. He is on anticoagulation therapy that was changed on 03/31/2018 from Lovenox to Xarelto. He is a high fall risk secondary to impaired balance, unsteady gait, weakness, self-care deficits, high risk for bleeding secondary to anticoagulant therapy. These are all barriers for him discharging home. He lives at home with his and daughter and was moderately independent with a rollator for mobility and he is independent to moderately independent with shower chair for bathing and ADLs, currently set up for mod assist for mobility with a very unsteady gait and shortness of breath. He is max assist with ADLs. He and his family plan for him return home as prior level of functioning or possibly better after his acute stay here in the inpatient rehab. COMORBIDITIES: Include pulmonary thromboembolus and DVT. He has got a history of hypothyroidism, hypertension, hyperlipidemia, BPH, cervical and lumbar stenosis, anemia, chronic kidney disease, thrombocytopenia, essential hypertension, obesity, pneumonia, and atrial fib, which has been transient. PAST MEDICAL HISTORY: Significant for morbid obesity, chronic anticoagulation therapy, coronary artery disease, hypothyroidism, hypertension, erectile dysfunction, pneumonia, hyperlipidemia, emphysema, past tobacco use, acid reflux, BPH, urinary retention. PAST SURGICAL HISTORY: Includes a PTCA of his left anterior descending and right coronary artery in 2012, he has had a penile implant, retinal detachment and cataract surgery. HISTORY AND PHYSICAL [id number] RASHAWN WATSON ALLERGIES: No known drug allergies. CURRENT MEDICATIONS: Include Floranex 460 mg daily, Effient 10 mg daily, potassium 10 mEq daily, Synthroid 150 mcg daily, Lasix 40 mg daily, Cardura 4 mg daily, aspirin chewable 162 mg daily, polyethylene glycol 17 grams in 8 ounce of water daily, Xarelto 15 mg b.i.d. with meals, Pravachol 20 mg at bedtime, Pepcid 20 mg b.i.d., Nitrostat p.r.n., metoprolol 25 mg b.i.d., DuoNeb updrafts as needed for shortness of breath, [employer] 5/325 one tab every 4 hours p.r.n., Mucinex 1 tab b.i.d., Neurontin 300 mg at bedtime, and Flexeril 10 mg every 8 hours p.r.n. muscle spasms. HABITS: Does have a history of tobacco use. FAMILY HISTORY: Noncontributory. SOCIAL HISTORY: The patient hopes to return back home with his daughter and . REVIEW OF SYSTEMS: GENERAL: Does complain of weakness and fatigue. HEENT: Denies cold, cough, or congestion. CARDIOVASCULAR: He denies chest pain at this time, it is now resolved. PHYSICAL EXAMINATION: VITAL SIGNS: Stable, afebrile. GENERAL: A morbidly obese gentleman in no acute distress, alert upon exam. HEENT: Normocephalic and atraumatic. Mucosa moist. NECK: Supple, with no lymphadenopathy. LUNGS: Clear in upper kline, decreased breath sounds in the bases. HEART: Regular rate and rhythm at this time. ABDOMEN: Benign. EXTREMITIES: Does have noted peripheral edema, worse on the right. NEUROLOGIC: Does have noted weakness. LABORATORY DATA: White count of 7.2, H&H of 9.3 and 29.9 and platelet count is 199. Sodium 139, potassium 3.7, BUN and creatinine of 10 and 1.0 and blood sugar is noted to be 92. ASSESSMENT: This is an 83-year-old gentleman admitted to the rehab with a working diagnosis of debility secondary to pulmonary thromboembolus and also deep venous thrombosis. The patient has potential to make improvement. We instituted the following multidisciplinary therapies include, but not limited to physical, occupational, respiratory, speech, nutritional services, prosthetics and orthotics. Given his complex medical condition and risks for more complications, rehabilitation services cannot be provided at a low level of care such as jail facility. PLAN: 1. Admit to [facility] rehab for intensive inpatient therapy to include the following disciplines: A. Physical therapy to improve gait, all transfer skills and bed mobility to a modified independent level. B. Occupational therapy to a modified independent level. C. Case management to assist with discharge planning and placement options. D. Nutrition to assist with nutritional needs. HISTORY AND PHYSICAL [id number] RASHAWN WATSON. Rehabilitation nursing to assist in monitoring the patient's underlying medical conditions and to assist with any type of bowel or bladder management. 2. The patient's current medication and medical care will be continued. 3. The patient will be placed on standard fall precautions. 4. The patient's estimated length of stay is approximately 7 to 10 days. 5. Discussed patient during care team staff meeting this week. TRANSINT:[id number] Voice Confirmation ID: [id number] DOCUMENT ID: [id number] ANCELMO notes whether there has been none or any medical/functional change since admission: - No change since prescreen. ANCELMO attests patient continues to be appropriate for IRF: - Continues to be approriate. GERONIMO MENDEZ MD at 1812 CC: [id number] DICTATION DATE: 04/02/18921 TOE FORMER: 04/02/18 1109 ADM IN [facility] [address] [place] [address]
[~2018-04-01 13:46] MED LIST changes: +IPRAT-ALBUT 0.5-3 ML UPD; +LOPRESSOR25 MG PO; +MAXIPIME 1 GM/D51 G1 IV; +MUCINEX DM ER1 EAC1 PO; +NEURONTIN 300300 MG PO; +NITROQUICK0.4 MG SL; +PEPCID PO; +PRAVACHOL20 MG PO; +XARELTO15 MG PO
[2018-04-01 15:21] VITALS: BP 120/62
[2018-04-01 19:00] VITALS: BP 132/72
[2018-04-02 06:18] LABS: BASOPHILS 0.3 % (0-2); EOSINOPHILS 3.6 % (0-7); HEMATOCRIT 29.9 % (42.0-54.0); HEMOGLOBIN 9.3 g/dL (13.5-17.5); IMMATURE GRANULOCYTES 1.1 % (0-5); LYMPHOCYTES 16.3 % (15-50); MCH 25.8 pg (26.0-34.0); MCHC 31.1 g/dL (31.0-37.0); MCV 83.1 fL (80.0-100.0); MEAN PLATELET VOLUME 9.3 fL (7.4-10.4); MONOCYTES 9.4 % (2-11); NEUTROPHILS 69.3 % (40-80); PLATELET COUNT 199 10x3/uL (130-400); RDW 18.1 % (11.5-14.5); WBC 7.2 10x3/uL (4.8-10.8)
[2018-04-02 06:48] LABS: CALC OSMOLALITY 276 mosm/kg (275-300); CALCIUM 7.8 mg/dL (8.5-10.1); CARBON DIOXIDE 21.8 mmol/L (21.0-32.0); CHLORIDE - SERUM 107 mmol/L (98-107); GLUCOSE 92 mg/dL (74-106); POTASSIUM - SERUM 3.7 mmol/L (3.5-5.1); SODIUM 139 mmol/L (136-145); UREA NITROGEN 10 mg/dL (7-18); eGFR NON AFRICAN AMERICAN 76 mL/min (90-120)
[2018-04-02 08:00] VITALS: BP 111/43
[2018-04-02 14:18] VITALS: Ht 177.8 cm; Wt 121.6 kg
[2018-04-02 19:00] VITALS: BP 138/58
[2018-04-03 05:38] LABS: BASOPHILS 0.2 % (0-2); EOSINOPHILS 5.4 % (0-7); HEMATOCRIT 29.1 % (42.0-54.0); LYMPHOCYTES 22.6 % (15-50); MCH 25.8 pg (26.0-34.0); MCHC 30.9 g/dL (31.0-37.0); MCV 83.4 fL (80.0-100.0); MEAN PLATELET VOLUME 9.4 fL (7.4-10.4); MONOCYTES 9.4 % (2-11); NEUTROPHILS 61.4 % (40-80); PLATELET COUNT 190 10x3/uL (130-400); RBC 3.49 10x6/uL (4.20-6.10); RDW 18.1 % (11.5-14.5); WBC 5.9 10x3/uL (4.8-10.8)
[2018-04-03 05:44] LABS: CALC OSMOLALITY 280 mosm/kg (275-300); CALCIUM 7.8 mg/dL (8.5-10.1); CARBON DIOXIDE 23.5 mmol/L (21.0-32.0); CHLORIDE - SERUM 107 mmol/L (98-107); GLUCOSE 84 mg/dL (74-106); POTASSIUM - SERUM 3.4 mmol/L (3.5-5.1); SODIUM 141 mmol/L (136-145); eGFR NON AFRICAN AMERICAN 76 mL/min (90-120)
[2018-04-03 05:46] LABS: UREA NITROGEN 14 mg/dL (7-18)
[2018-04-03 08:00] VITALS: BP 117/58
[2018-04-03 19:00] VITALS: BP 129/69
[2018-04-04 19:50] VITALS: BP 125/61
[2018-04-05 08:57] VITALS: BP 131/67
[2018-04-05 20:11] VITALS: BP 103/60
[2018-04-06 05:45] LABS: BASOPHILS 0.3 % (0-2); EOSINOPHILS 5.7 % (0-7); HEMOGLOBIN 9.5 g/dL (13.5-17.5); LYMPHOCYTES 24.1 % (15-50); MCH 25.9 pg (26.0-34.0); MCHC 31.7 g/dL (31.0-37.0); MCV 81.7 fL (80.0-100.0); MEAN PLATELET VOLUME 9.4 fL (7.4-10.4); MONOCYTES 9.1 % (2-11); NEUTROPHILS 59.8 % (40-80); RBC 3.67 10x6/uL (4.20-6.10); RDW 17.7 % (11.5-14.5); WBC 5.8 10x3/uL (4.8-10.8)
[2018-04-06 05:46] LABS: PLATELET COUNT 250 10x3/uL (130-400)
[2018-04-06 06:03] LABS: CALC OSMOLALITY 281 mosm/kg (275-300); CARBON DIOXIDE 22.8 mmol/L (21.0-32.0); CHLORIDE - SERUM 106 mmol/L (98-107); CREATININE - SERUM 0.9 mg/dL (0.6-1.3); GLUCOSE 90 mg/dL (74-106); POTASSIUM - SERUM 3.2 mmol/L (3.5-5.1); SODIUM 142 mmol/L (136-145); UREA NITROGEN 10 mg/dL (7-18); eGFR NON AFRICAN AMERICAN 86 mL/min (90-120)
[2018-04-06 08:00] VITALS: BP 88/40
[2018-04-06 21:20] VITALS: BP 125/59
[2018-04-07 19:22] VITALS: BP 140/77
[2018-04-08 07:22] LABS: BASOPHILS 0.4 % (0-2); EOSINOPHILS 7.8 % (0-7); HEMATOCRIT 27.9 % (42.0-54.0); HEMOGLOBIN 8.7 g/dL (13.5-17.5); LYMPHOCYTES 19.9 % (15-50); MCH 25.1 pg (26.0-34.0); MCHC 31.2 g/dL (31.0-37.0); MCV 80.4 fL (80.0-100.0); MEAN PLATELET VOLUME 9.1 fL (7.4-10.4); MONOCYTES 11.2 % (2-11); NEUTROPHILS 58.7 % (40-80); RBC 3.47 10x6/uL (4.20-6.10); RDW 17.9 % (11.5-14.5); WBC 5.5 10x3/uL (4.8-10.8)
[2018-04-08 07:23] LABS: PLATELET COUNT 306 10x3/uL (130-400)
[2018-04-08 07:36] LABS: ANION GAP 14.9 mmol/L (8-16); CARBON DIOXIDE 22.8 mmol/L (21.0-32.0); CREATININE - SERUM 1.2 mg/dL (0.6-1.3); POTASSIUM - SERUM 3.7 mmol/L (3.5-5.1)
[2018-04-08 19:00] VITALS: BP 122/65
[2018-04-09 08:00] VITALS: BP 102/55
[2018-04-09 19:00] VITALS: BP 135/66
[2018-04-10 07:21] LABS: ANION GAP 13.9 mmol/L (8-16); CALCIUM 8.2 mg/dL (8.5-10.1); CARBON DIOXIDE 24.2 mmol/L (21.0-32.0); CREATININE - SERUM 1.4 mg/dL (0.6-1.3); POTASSIUM - SERUM 4.1 mmol/L (3.5-5.1)
[2018-04-10 07:29] LABS: HEMATOCRIT 28.8 % (42.0-54.0); HEMOGLOBIN 9.2 g/dL (13.5-17.5); LYMPHOCYTES 25.7 % (15-50); MCH 25.6 pg (26.0-34.0); MCHC 31.9 g/dL (31.0-37.0); MCV 80.2 fL (80.0-100.0); MEAN PLATELET VOLUME 8.6 fL (7.4-10.4); NEUTROPHILS 61.3 % (40-80); PLATELET COUNT 362 10x3/uL (130-400); RBC 3.59 10x6/uL (4.20-6.10); RDW 17.7 % (11.5-14.5); WBC 5.5 10x3/uL (4.8-10.8)
[2018-04-10 08:00] VITALS: BP 112/58
== END 2018-04-10 12:03 | disposition home or self-care (01) | DRG 947 ==
LOC: D.REHAB 13:46
PROVIDERS: Emergency Medicine
DX: R53.81 Other malaise (principal); I26.99 Other pulmonary embolism without acute cor pulmonale; J18.9 Pneumonia, unspecified organism; I82.441 Acute embolism and thrombosis of right tibial vein; E03.9 Hypothyroidism, unspecified; I12.9 Hypertensive chronic kidney disease with stage 1 through stage 4 chronic kidney disease, or unspecified chronic kidney disease; N18.9 Chronic kidney disease, unspecified; N40.0 Benign prostatic hyperplasia without lower urinary tract symptoms; M48.02 Spinal stenosis, cervical region; M48.061 Spinal stenosis, lumbar region without neurogenic claudication; E66.9 Obesity, unspecified; I48.91 Unspecified atrial fibrillation; D64.9 Anemia, unspecified; D69.6 Thrombocytopenia, unspecified

== ENCOUNTER → 2018-07-17 09:42 | Outpatient (CLI) | payer MEDICARE ==
[2018-04-02 14:18] VITALS: BMI 38.4
== END | disposition home or self-care (01) ==
LOC: D.US 09:30
DX: I82.403 Acute embolism and thrombosis of unspecified deep veins of lower extremity, bilateral (principal)

== ENCOUNTER 2019-02-06 11:03 | Outpatient (CLI) | payer MEDICARE ==
[~2019-02-06] VITALS: Ht 177.8 cm; Wt 106.8 kg
--- NOTE | 2019-02-06 11:25 | NUR ---
TO ROOM 2217 FROM HOME. ASSESSMENT PER FLOW SHEET. PT TO GET BLOOD AND DC HOME AFTER.IV SITED TO LEFT UPPER ARM X2 STICKS USING ASEPTIC TECH.MONITOR
[2019-02-06 11:44] LABS: BASOPHILS 0.5 % (0-2); EOSINOPHILS 12.4 % (0-7); HEMATOCRIT 25.4 % (42.0-54.0); HEMOGLOBIN 7.6 g/dL (13.5-17.5); IMMATURE GRANULOCYTES 0.1 % (0-5); LYMPHOCYTES 22.4 % (15-50); MCH 22.8 pg (26.0-34.0); MCHC 29.9 g/dL (31.0-37.0); MCV 76.3 fL (80.0-100.0); MONOCYTES 7.6 % (2-11); RBC 3.33 10x6/uL (4.20-6.10); RDW 16.5 % (11.5-14.5); WBC 7.5 10x3/uL (4.8-10.8)
[2019-02-06 11:57] LABS: ANION GAP 13.7 mmol/L (8-16); CALCIUM 8.6 mg/dL (8.5-10.1); CARBON DIOXIDE 23.1 mmol/L (21.0-32.0); CREATININE - SERUM 1.5 mg/dL (0.6-1.3); POTASSIUM - SERUM 3.8 mmol/L (3.5-5.1)
[2019-02-06 12:02] LABS: PLATELET COUNT 273 10x3/uL (130-400)
[2019-02-06 13:55] VITALS: BP 115/50; Ht 177.8 cm; Wt 106.8 kg
--- NOTE | 2019-02-06 14:40 | NUR ---
UNIT 1 OF 2 PRBC'S INITIATED. PT IS WITHOUT REACTIONS.MONITOR FOR NEEDS
--- NOTE | 2019-02-06 17:25 | NUR ---
UNIT 1 OF 2 PRBC'S COMPLETE. PT WITHOUT REACTIONS
--- NOTE | 2019-02-06 17:50 | NUR ---
UNIT 2 OF 2 PRBC'S INITIATED. PT IS WITHOUT REACTIONS. IV LASIX ORDERED BETWEEN UNIT SLOW IVP.
--- NOTE | 2019-02-06 20:10 | NUR ---
2ND UNIT OF PRBC'S COMPLETE AND LINE FLUSHING.
--- NOTE | 2019-02-06 20:35 | NUR ---
REMOVED IV TO LEFT UPPER ARM WITH CATHETER TIP INTACT. PRESSURE DRESSING APPLIED.
--- NOTE | 2019-02-06 20:36 | NUR ---
DISCHARGE INSTRUCTIONS GIVEN TO PT AND FAMILY MEMBERS. PT ESCORTED TO FRONT ENTRANCE VIA WHEELCHAIR BY STRUCTURAL STEEL ENGINEER TO AWAITING VEHICLE.
== END 2019-02-06 20:38 | disposition home or self-care (01) ==
LOC: D.OPS 11:03 → D.MS 11:05 → D.OPS 20:38
PROVIDERS: ATTEND Family Medicine
DX: D64.9 Anemia, unspecified (principal)

== ENCOUNTER 2019-02-10 07:52 | Outpatient (CLI) | payer MEDICARE ==
[~2019-02-10] VITALS: Ht 177.8 cm; Wt 107.3 kg
[2019-02-10 08:38] VITALS: BP 155/70; Ht 177.8 cm; Wt 107.3 kg
--- NOTE | 2019-02-10 11:02 | NUR ---
1030 ROOM CHECK, DENIES PROBLEMS WITH TRANSFUSION, AT BEDSIDE. RATE AT 150/CC/HR. IV SITE GOOD. PT. READJUSTED IN BED FOR COMFORT.
--- NOTE | 2019-02-10 11:38 | NUR ---
1115 ROOM CHECK, BLOOD CONTINUES, PT. DENIES PROBLEMS WITH TRANSFUSION, AT SIDE. SITE GOOD.
--- NOTE | 2019-02-10 12:38 | NUR ---
1215 BLOOD LINE CLEARED AND DC'D WITH CATH INTACT. PT. UP TO BR VOIDS. HAS RECEIVED DC INSTS. DENIED PROBLEMS WITH TRANSFUSION. 1220 RELEASED IN WC WITH ESCORT. [facility].
== END 2019-02-10 12:20 | disposition home or self-care (01) ==
LOC: D.SDCHOLD 07:52 → D.OPS 07:52
PROVIDERS: ATTEND Family Medicine
DX: D50.9 Iron deficiency anemia, unspecified (principal); R06.09 Other forms of dyspnea

== ENCOUNTER 2019-02-22 06:17 | Inpatient (IN) | payer MEDICARE ==
[~2019-02-22] VITALS: Ht 177.8 cm; Wt 98.2 kg
[2019-02-22 06:55] LABS: BASOPHILS 0.3 % (0-2); EOSINOPHILS 9.6 % (0-7); HEMATOCRIT 32.1 % (42.0-54.0); HEMOGLOBIN 10.2 g/dL (13.5-17.5); IMMATURE GRANULOCYTES 0.3 % (0-5); LYMPHOCYTES 18.6 % (15-50); MCH 24.6 pg (26.0-34.0); MCHC 31.8 g/dL (31.0-37.0); MCV 77.5 fL (80.0-100.0); MEAN PLATELET VOLUME 8.8 fL (7.4-10.4); MONOCYTES 7.4 % (2-11); NEUTROPHILS 63.8 % (40-80); PLATELET COUNT 289 10x3/uL (130-400); RBC 4.14 10x6/uL (4.20-6.10); RDW 19.6 % (11.5-14.5); WBC 9.2 10x3/uL (4.8-10.8)
[2019-02-22 07:15] LABS: ALBUMIN 3.1 g/dL (3.4-5.0); ANION GAP 13.8 mmol/L (8-16); BILIRUBIN - TOTAL 0.47 mg/dL (0.2-1.3); CALCIUM 8.8 mg/dL (8.5-10.1); CARBON DIOXIDE 27.8 mmol/L (21.0-32.0); CREATININE - SERUM 1.6 mg/dL (0.6-1.3); POTASSIUM - SERUM 3.6 mmol/L (3.5-5.1); PROTEIN - SERUM 7.7 g/dL (6.4-8.2)
[2019-02-22 08:27] VITALS: BMI 34.0
--- NOTE | 2019-02-22 10:51 | HP ---
PATIENT: RASHAWN WATSON MEDICAL RECORD: [id number] ACCOUNT: [id number] LOCATION:[facility] : 37 ADMISSION DATE: 02/22/19 PCP: JANELLE OLIVEIRA MD HISTORY AND PHYSICAL EXAMINATION PRINCIPAL DIAGNOSIS: Blood loss anemia requiring transfusions. HISTORY OF PRESENT ILLNESS: He has had no abdominal pain. No dysphagia. He has required 3 blood transfusions. SOCIAL HISTORY: Nonsmoker. PAST MEDICAL AND SURGICAL HISTORY: DVT, pulmonary thromboembolism, arthritis, hypothyroidism, on replacement therapy, hypercholesterolemia, history of coronary stents times 1. ALLERGIES: No known drug allergies. MEDICATIONS: Please see the nursing list. He is currently taking Xarelto. REVIEW OF SYSTEMS: Negative for CVA or seizures. Negative for diabetes or hepatitis. PHYSICAL EXAMINATION: GENERAL: The patient does not appear acutely ill. He does not appear chronically ill. VITAL SIGNS: Reviewed. EARS: External ears appear normal. EYES: Extraocular movements are intact. NECK: Trachea is midline. CHEST: No intercostal retractions. IMPRESSION: Anemia requiring transfusions. PLAN: Will be EGD and colonoscopy. TRANSINT:[id number] Voice Confirmation ID: [id number] DOCUMENT ID: [id number] JANICE ESPANA MD at 1051 CC: JANELLE OLIVEIRA and TR MORA [id number] DICTATION DATE: 02/22/1944 HYDROMETEOROLOGY TEACHER: 02/22/19 1036 REG [facility] [address] [place] [address]
--- NOTE | 2019-02-22 12:32 | NUR ---
1210 94% ON 4LPM DECREASED TO 2LPM 1230 95% ON 2LPM TURNED O2 OFF. WILL CONTINUE TO MONITOR.
[2019-02-22 15:46] LABS: BASOPHILS 0.1 % (0-2); HEMATOCRIT 32.6 % (42.0-54.0); HEMOGLOBIN 10.3 g/dL (13.5-17.5); IMMATURE GRANULOCYTES 0.3 % (0-5); LYMPHOCYTES 7.7 % (15-50); MCH 24.7 pg (26.0-34.0); MCHC 31.6 g/dL (31.0-37.0); MCV 78.2 fL (80.0-100.0); MEAN PLATELET VOLUME 9.4 fL (7.4-10.4); MONOCYTES 4.2 % (2-11); NEUTROPHILS 85.7 % (40-80); PLATELET COUNT 285 10x3/uL (130-400); RBC 4.17 10x6/uL (4.20-6.10); RDW 19.5 % (11.5-14.5)
--- NOTE | 2019-02-22 15:49 | NUR ---
LATE NOTE (AROUND 1135 PATIENT ATE A FULL LIQUID TRAY) PATIENT TOLLERATED FULL LIQUID DIET WITH NO N/V. MV
[2019-02-22 15:54] LABS: WBC 15.5 10x3/uL (4.8-10.8)
--- NOTE | 2019-02-22 18:24 | NUR ---
PT RECIEVED TO ROOM O2 4L NC, LFA PIV SL, BLE EDEMA WITH SCABS PRESENT, MONITORING EQUIPMENT ATTACHED, SET UP SECURITY CODE, CALL LIGHT WITHIN REACH
--- NOTE | 2019-02-22 18:30 | NUR ---
1800 REPORT GIVEN TO BEN IN ICU. TRASFERED ON 4LITER OF NC.
[2019-02-22 18:51] VITALS: BP 109/43
[2019-02-22 19:00] VITALS: BP 99/49
--- NOTE | 2019-02-22 19:20 | NUR ---
REPORT RECEIVED, SHIFT ASSESSMENT COMPLETED PER FLOW SHEET, SEE FOR DETAILS. DENIES PAIN OR NEEDS. CALL LIGHT WITHIN REACH. WILL CONTINUE TO MONITOR. [address] ESPANA ON THE PHONE, UPDATE GIVEN ON PATIENT'S CURRENT STATUS. NEW ORDERS RECEIVED, SEE ORDERS FOR DETAILS. 1937 NS BOLUS INFUSING PER DR. ESPANA'S ORDERS. PATIENT DENIES NEEDS. CALL LIGHT WITHIN REACH. 2115 SCHEDULED MEDS GIVEN, SEE EMAR FOR DETAILS. WATER PROVIDED. TOLERATED WELL. DENIES NEEDS. CALL LIGHT WITHIN REACH. 2333 REASSESSMENT COMPLETED PER FLOW SHEET, SEE FOR DETAILS. LT FOREARM PIV INFILTRATED, D/C'D WITH CATHETER INTACT. PLACED RT FOREARM PIV X2 ATTEMPTS. DENIES PAIN OR NEEDS. CALL LIGHT WITHIN REACH.
[2019-02-22 20:00] VITALS: BP 96/35
[2019-02-22 21:00] VITALS: BP 104/42
[2019-02-22 21:18] VITALS: BMI 29.9
[2019-02-22 22:00] VITALS: BP 102/51
[2019-02-22 23:00] VITALS: BP 111/43
[2019-02-23] VITALS (24 sets, daily range): BP systolic 90–138; BP diastolic 42–61; Ht 177.8 cm; Wt 98.2 kg
--- NOTE | 2019-02-23 01:00 | NUR ---
RESTING, DENIES NEEDS OR PAIN. CALL LIGHT WITHIN REACH. WILL CONTINUE TO MONITOR. 0327 REASSESSMENT COMPLETED PER FLOW SHEET, SEE FOR DETAILS. NO ACUTE CHANGES NOTED. WILL CONTINUE TO MONITOR. 0500 RESTING, DENIES PAIN OR NEEDS. CALL LIGHT WITHIN REACH.
[2019-02-23 06:53] LABS: BASOPHILS 0.2 % (0-2); EOSINOPHILS 1.1 % (0-7); HEMATOCRIT 27.1 % (42.0-54.0); HEMOGLOBIN 8.5 g/dL (13.5-17.5); IMMATURE GRANULOCYTES 0.4 % (0-5); LYMPHOCYTES 10.7 % (15-50); MCH 24.6 pg (26.0-34.0); MCHC 31.4 g/dL (31.0-37.0); MCV 78.3 fL (80.0-100.0); MEAN PLATELET VOLUME 8.9 fL (7.4-10.4); NEUTROPHILS 80.6 % (40-80); PLATELET COUNT 234 10x3/uL (130-400); RBC 3.46 10x6/uL (4.20-6.10); RDW 19.7 % (11.5-14.5); WBC 15.7 10x3/uL (4.8-10.8)
[2019-02-23 07:10] LABS: CALC OSMOLALITY 286 mosm/kg (275-300); CARBON DIOXIDE 26.7 mmol/L (21.0-32.0); CHLORIDE - SERUM 107 mmol/L (98-107); CREATININE - SERUM 1.7 mg/dL (0.6-1.3); GLUCOSE 109 mg/dL (74-106); MAGNESIUM - SERUM 2.4 mg/dL (1.8-2.4); POTASSIUM - SERUM 3.5 mmol/L (3.5-5.1); SODIUM 143 mmol/L (136-145); TROPONIN-I < 0.017 ng/mL (0.000-0.060); UREA NITROGEN 15 mg/dL (7-18); eGFR NON AFRICAN AMERICAN 41 mL/min (90-120)
--- NOTE | 2019-02-23 07:34 | NUR ---
DR. OLIVEIRA AT BEDSIDE. NOTIFIED THAT PT HAD NOT VOIDED. ORDERED CATHETER PLACEMENT FOR ACCURATE I&O. ORDERED WOUND CARE CONSULT FOR LOWER EXTREMITIES. PT A&OX4. ON 2L O2 VIA NC. HAS R-FOREARM PIV WITH NS AT 75ML/HR. SWELLING, REDNESS, SORES, AND SCALY SKIN NOTED ON BILATERAL LE. BP 93/42, HR 85, O2 SAT 96%, TEMP 98.2 ORALLY. COMPLETE SHIFT ASSESSMENT DOCUMENTED IN FLOWSHEET. SAFETY MEASURES IN PLACE. WILL CONTINUE TO MONITOR.
--- NOTE | 2019-02-23 08:16 | NUR ---
DR. ESPANA CALLED AT THIS TIME TO GET UPDATE ON PT.
--- NOTE | 2019-02-23 09:40 | NUR ---
CHG BATH GIVEN. PT ABLE TO BATHE SELF WITH MINIMAL ASSISTANCE. COMPLETE BED LINEN CHANGE PROVIDED. 16 LIBERIAN TREJO CATHETER INSERTED PER ORDERS. PT TOLERATED WELL. URINE WAS CLOUDY. URINE SAMPLE COLLECTED AND SENT TO LAB. PT DENIES FURTHER NEEDS AT THIS TIME. WILL CONTINUE TO MONITOR.
--- NOTE | 2019-02-23 10:09 | NUR ---
ASSISTED PT TO BATHROOM. PT HAS SOB, HR 113. DR. MORA PAGED AT THIS TIME. PT STATES SHE FEELS OUT OF BREATH. ON 2L O2 VIA NC. O2 SAT 99%. WILL CONTINUE TO MONITOR.
--- NOTE | 2019-02-23 10:17 | NUR ---
CALL RECEIVED FROM DR. MORA'S STAFF. SPOKE WITH LYRIC. NOTIFIED THEM THAT PT IS HAVING SOB. SHE WILL LET DR. MORA KNOW.
[2019-02-23 10:37] LABS: APPEARANCE CLOUDY (CLEAR); BILIRUBIN NEGATIVE (NEGATIVE); COLOR YELLOW (YELLOW); GLUCOSE NEGATIVE (NEGATIVE); KETONE NEGATIVE (NEGATIVE); NITRITE POSITIVE (NEGATIVE); PROTEIN 1+ mg/dL (NEGATIVE); UROBILINOGEN NORMAL (NORMAL)
[2019-02-23 10:45] LABS: WHITE CELLS - URINE >50 /hpf (0-5)
[2019-02-23 10:46] LABS: BACTERIA MODERATE /hpf (NONE SEEN); EPITHELIAL CELLS NSEEN /hpf (0-5)
--- NOTE | 2019-02-23 10:50 | NUR ---
[facility] IN ROOM.
--- NOTE | 2019-02-23 11:56 | NUR ---
UNIT OF PRBC'S INITIATED AT THIS TIME. BLOOD CONSENT SIGNED PRIOR TO TRANSFUSION AND PLACED IN CHART. PT RESTING COMFORTABLY. WILL CONTINUE TO MONITOR.
--- NOTE | 2019-02-23 12:35 | NUR ---
SAL VALERIO WITH WOUND CARE NOTIFIED OF CONSULT.
--- NOTE | 2019-02-23 13:05 | NUR ---
WOUND CARE NURSE AT BEDSIDE.
--- NOTE | 2019-02-23 14:02 | NUR ---
CALL LIGHT ANSWERED. PULLED PT UP IN BED. PT ABLE TO TURN FROM SIDE TO SIDE INDEPENDENTLY. DENIES FURTHER NEEDS AT THI TIME. WILL CONTINUE TO MONITOR.
--- NOTE | 2019-02-23 15:19 | NUR ---
UNIT OF BLOOD FINISHED INFUSING. NO BLOOD REACTION NOTED. PT RESTING COMFORTABLY. WILL CONTINUE TO MONITOR.
--- NOTE | 2019-02-23 15:27 | NUR ---
BILATERAL LOWER EXTREMITIES ARE EDEMATOUS AND HAVE OPEN AREAS THAT WERE BLISTERS THAT HAVE RUPTURED RELATED TO THE EDEMA. THESE AREAS ARE BEGINNING TO HEAL. PT STATES THIS HAS HAPPENED IN THE PAST, LEGS BECOME EDEMATOUS, BLISTERS FORM, RUPTURE, BECOME OPEN WOUNDS. WHEN THE EDEMA DECREASES THE WOUNDS HEAL. HE STATES HE KNOWS TO KEEP THEM ELEVATED. RECOMMENDATIONS: KEEP LEGS CLEAN (USING SOAP AND WATER OR WOUND CLEANSER) EVERY DAY. DRY WELL. AND KEEP LEGS ELEVATED.
--- NOTE | 2019-02-23 16:29 | MORECARE ---
CASE MANAGEMENT DISCHARGE SUMMARY PATIENT: RASHAWN WATSON UNIT: [id number] ADM DATE: 02/22/19 AGE: 84 : [birth year] SEX: M ROOM/BED: [facility] AUTHOR: NADIA DELGADO PHYSICIAN: REFERRING PHYSICIAN: JANICE ESPANA MD DATE OF SERVICE: 02/23/19 Discharge Plan Patient Name: RASHAWN WATSON Facility: [facility]:[place] : 1935 Planned Disposition: Home Anticipated Discharge Date: Discharge Date: Expected LOS: Initial Reviewer: [email or web address] Initial Review Date: 02/23/2019 Generated: 02/23/19 5:29 pm Comments DCP- Discharge Planning Updated by [email or web address]: Sandrine Singh on 02/23/19 3:[address] Patient Name: RASHAWN WATSON Admission Status: Elective Accout number: [id number] Admission Date: 02-22-2019 : 1935 Admission Diagnosis:IRON DEFICIENCY ANEMIA, UNSPECIFIED Attending: JANICE ESPANA Current LOS: 1 Anticipated DC Date: Planned Disposition: Home Primary Insurance: MEDICARE A & B Discharge Planning Comments: CM met with patient at bedside after explaining CM role and obtaining verbal consent. Patient lives at home with his , daughter and grandsons where he is independent with his care and plans to return there upon discharge. Patient feels this would be a safe discharge. Patient states he has 14 steps going to his bedroom. CM discussed availability / needs of home health and medical equipment. Patient denies any discharge needs at this time. Patient states his daughter was setting up HH or a caregiver when he goes home. Patient states he will have his family drive him home upon discharge. CM will continue to follow and assist as needed with discharge planning / needs. Abstracter: Sandrine Singh DCPIA - Discharge Planning Initial Assessment Updated by [email or web address]: Sandrine Singh on 02/23/19 4:22 pm * Is the patient Alert and Oriented? Yes * How many steps to enter\exit or inside your home? * PCP YI * Pharmacy [facility] * Preadmission Environment Home with Family * ADLs Independent * Other Equipment WALKER W SEAT * List name and contact numbers for known caregivers / representatives who currently or will assist patient after discharge: EARLINE WATSON - DAUGHTER- [phone] * Verbal permission to speak to the caregivers and representatives has been obtained from the patient. Yes * Community resources currently utilized None * Additional services required to return to the preadmission environment? No * Can the patient safely return to the preadmission environment? Yes * Has this patient been hospitalized within the prior 30 days at any hospital? No Patient Name: RASHAWN WATSON Page [id number] at 1629 All edits/amendments must be made on the electronic document DICTATION DATE: 02/23/191628 PYROTECHNIC ASSEMBLER: LISA 02/23/191628 RPT#: [id number] DC DATE: STATUS: ADM IN [facility] [address] [place] [address] END OF REPORT
--- NOTE | 2019-02-23 17:08 | NUR ---
PT REPORTS TINGLING AND BURNING IN HIS LEG. DR. OLIVEIRA NOTIFIED. ORDERED GABAPENTIN 300MG 3 TIMES DAILY AND TYLENOL 500MG 1-2 TABS Q 6HR PRN.
--- NOTE | 2019-02-23 18:17 | NUR ---
PT CONTINUES TO REPORT TINGLING AND BURNING ON LE. UNABLE TO GET COMFORTABLE. ASSISTED TO SIDE OF BED. WILL CONTINUE TO MONITOR.
--- NOTE | 2019-02-23 19:31 | NUR ---
SHIFT ASSESSMENT COMPLETED PER FLOW SHEET, SEE FOR DETAILS. DENIES PAIN OR NEEDS. CALL LIGHT WITHIN REACH. 2117 SCHEDULED MEDS GIVEN, SEE EMAR FOR DETAILS. WATER PROVIDED. TOLERATED WELL. NO DIFFICULTY SWALLOWING. 2314 REASSESSMENT COMPLETED PER FLOW SHEET, SEE FOR DETAILS. DENIES PAIN OR NEEDS. WILL CONTINUE TO MONITOR. 0100 RESTING, DENIES NEEDS. CALL LIGHT WITHIN REACH. 0318 REASSESSMENT COMPLETED PER FLOW SHEET, SEE FOR DETAILS. DENIES PAIN OR NEEDS. WILL CONTINUE TO MONITOR. 0500 DENIES PAIN OR NEEDS. CALL LIGHT WITHIN REACH. WILL CONTINUE TO MONITOR.
[2019-02-24] VITALS (25 sets, daily range): BP systolic 92–129; BP diastolic 30–68
[2019-02-24 03:52] LABS: BASOPHILS 0.2 % (0-2); EOSINOPHILS 5.4 % (0-7); HEMATOCRIT 27.7 % (42.0-54.0); HEMOGLOBIN 8.8 g/dL (13.5-17.5); IMMATURE GRANULOCYTES 0.3 % (0-5); LYMPHOCYTES 11.8 % (15-50); MCH 24.7 pg (26.0-34.0); MCHC 31.8 g/dL (31.0-37.0); MCV 77.8 fL (80.0-100.0); MEAN PLATELET VOLUME 9.1 fL (7.4-10.4); MONOCYTES 8.1 % (2-11); NEUTROPHILS 74.2 % (40-80); PLATELET COUNT 218 10x3/uL (130-400); RBC 3.56 10x6/uL (4.20-6.10); RDW 19.1 % (11.5-14.5)
[2019-02-24 03:58] LABS: WBC 9.9 10x3/uL (4.8-10.8)
[2019-02-24 04:03] LABS: CALCIUM 7.9 mg/dL (8.5-10.1); CARBON DIOXIDE 26.2 mmol/L (21.0-32.0); CREATININE - SERUM 1.4 mg/dL (0.6-1.3); POTASSIUM - SERUM 3.2 mmol/L (3.5-5.1)
--- NOTE | 2019-02-24 07:26 | CN ---
PATIENT NAME:RASHAWN WATSON MEDICAL RECORD: [id number] : [birth year] LOCATION:[facility] ADMIT DATE: 02/22/19 ACCOUNT: [id number] CONSULTING PHYSICIAN: JANELLE OLIVEIRA MD REFERRING PHYSICIAN: JANICE ESPANA MD DATE OF CONSULTATION: 02/22/2019 MEDICAL CONSULT ADMITTING PHYSICIAN: Janice Espana MD REASON FOR CONSULTATION: Medical management in a patient with post-endoscopy with left pleural effusion and cough. HISTORY OF PRESENT ILLNESS: The patient is an 84-year-old male with history of morbid obesity, remote PE, DVT multiple with IVC filter. He had seen Dr. Kehinde Cabrera, [facility] because of chronic lymphedema. He had asked me to order a contrasted CT to evaluate his filter and see if he had a venous obstruction. Labs were obtained and the patient was found to have a hemoglobin of 7. He was transfused 2 units of packed cells. Outpatient anemia workup showed iron deficiency anemia and stool was heme positive. He received 2 more units of packed cells and referred to Dr. Espana for endoscopy. That was accomplished today with findings per his report of a submucosal mass in his greater curvature of the stomach, a gastric ulcer, and also a perianal ulcerative type mass. The patient was noted to be hypoxic post-procedure 88% on 4 liters in the supine position, improved on sitting. He also was suctioned by anesthesia and had some bilious material in his pharynx. 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 He is now being admitted to the ICU for observation tonight concerning possible aspiration pneumonia. Biopsies could not be obtained because of Plavix therapy he had neglected to discontinue. PAST MEDICAL HISTORY: Morbid obesity, had massive bilateral pulmonary emboli several years ago, on chronic anticoagulation, history of bilateral DVTs, chronic peripheral edema, history of CAD post-PTCA, LAD and right coronary artery with Dr. Shepherd in 2012, BPH, hypothyroidism, essential hypertension, erectile dysfunction, pneumonia in 2010, hyperlipidemia, cervical and lumbar canal stenosis with neurogenic claudication, history of LESI per Dr. Lemus. He complains of chronic pain in both legs as a result. PAST SURGICAL HISTORY: Penile implant, renal detachment and laser retinal therapy, PTCA of the LAD and RCA in 2012, IVC filter placement, paroxysmal atrial fibrillation. CURRENT MEDICATIONS: Levothyroxine 100 mcg daily, Lasix 40 mg daily, Xarelto 20 mg a day, finasteride 5 mg daily, gabapentin 600 mg p.o. t.i.d., Aldactone 25 mg a day, metoprolol tartrate 25 mg p.o. daily, doxazosin 4 mg at h.s., Zantac 150 mg at h.s., pravastatin 20 mg at h.s., cyclobenzaprine 10 mg at h.s. p.r.n. muscle spasm. ALLERGIES: None known. SOCIAL HISTORY: He is and retired. He lives with his . His daughter is a physician as well. He is a nonsmoker, nondrinker, currently. CONSULT REPORT [id number] RASHAWN WATSON REVIEW OF SYSTEMS: CONSTITUTIONAL: Chronic fatigue, worse recently. HEENT: No recent visual change, sinus congestion, or sore throat. RESPIRATORY: Mild short of breath on exertion, intermittent cough, no hemoptysis. CARDIAC: No exertional chest pain. He has no claudication, mild GARZA. He has chronic edema, it has been worse in the lower extremities over the last 6 months. GASTROINTESTINAL: He has intermittent dyspepsia. No recent nausea, vomiting, change in stools, although he did mention some dark stools and I asked him about that recently. GENITOURINARY: Nocturia once nightly, history of penile implant. MUSCULOSKELETAL: He has arthralgias in his lumbar spine. They are severe neurogenic pain. INTEGUMENT: Does admit to a sore area on his right. Buttocks area has been tender. PSYCHIATRIC: Denies depress mood normal. NEUROLOGIC: No history of stroke, TIA, or vascular headaches. PHYSICAL EXAMINATION: VITAL SIGNS: Temperature 97.8, pulse 73 and regular, respirations 16, blood pressure 130/68, oxygen saturation post-procedure was 88%, now 93% on 4 liters. GENERAL: The patient appears chronically ill. HEENT: Normocephalic. Eyes are clear. Palpebral conjunctivae are pale. NECK: Supple. CHEST: He has crackles in the left base. Right lung was unremarkable. HEART: Regular rate and rhythm. ABDOMEN: Morbidly obese, soft, nontender. GENITOURINARY: Shows penile implant. RECTAL: Deferred, done this morning by Dr. Espana. 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 EXTREMITIES: Shows 4+ lymphedema bilaterally with some weeping in the lower extremities. NEUROLOGIC: Oriented to person, place, and time currently. Motor and sensory grossly intact. Gait is affected by his lymphedema. LABORATORY DATA: Labs shows an H&H of 10.2 and 32.1, this is post 4 transfusions of packed cells over the last 2 weeks, platelet count 289,000, white count is 9200. Sodium is 143, potassium 3.6, creatinine 1.6, BUN is 18, glucose 95. Liver functions are normal. Chest x-ray shows left pleural effusion, moderate. Heart is normal size and bilateral airspace disease, especially of the right diaphragm suspicious for pneumonia. ASSESSMENT: 1. Possible aspiration pneumonia. 2. Anemia of gastrointestinal blood loss. 3. Gastric ulcer. 4. Gastric mass. 5. Perirectal ulcer, suspicious for malignancy. 6. History of pulmonary embolism, bilateral deep venous thrombosis with IVC filter. 7. Chronic lymphedema. 8. Chronic pain syndrome with neurogenic claudication and lumbar canal stenosis. 9. Morbid obesity. CONSULT REPORT [id number] RASHAWN WATSON 10. Hypothyroidism. 11. Hypertension. 12. History of PAF. PLAN: Hold Xarelto currently and place in the ICU, broad-spectrum IV antibiotics, pulmonary consult will be obtained. Echocardiogram. Further workup pending clinical course. Thank you for this consult Dr. Espana. Current plans were discussed with the patient and his spouse. TRANSINT:[id number] Voice Confirmation ID: [id number] DOCUMENT ID: [id number] JANELLE OLIVEIRA MD at 0726 CC: [id number] DICTATION DATE: 02/22/19 1747 STUDENT DEVELOPMENT ADVISOR: 02/23/19 0849 ADM IN [facility] [address] [place] [address]
--- NOTE | 2019-02-24 07:30 | NUR ---
SPOKE TO DR. OLIVEIRA, UPDATE GIVEN, NEW ORDERS RECEIVED, SEE ORDERS FOR DETAILS.
--- NOTE | 2019-02-24 08:15 | NUR ---
PT SITTING ON SIDE OF BED. REFUSED TO MEAL THAT WAS BROUGHT IN FOR BREAKFAST. PT ASKED IF HE COULD HAVE SOME OATMEAL. OATMEAL ORDERED PLACED WITH DIETARY.
--- NOTE | 2019-02-24 08:45 | NUR ---
AM MEDS GIVEN. PT ASSISTED UP TO BEDSIDE COMMODE. NO STOOL NOTED. WILL CONTINUE TO MONITOR.
--- NOTE | 2019-02-24 10:26 | NUR ---
PT SITTING UP IN CHAIR. DENIES ANY PAIN AT THIS TIME. WILL CONTINUE TO MONITOR.
[2019-02-24 11:20] LABS: HEMATOCRIT 30.7 % (42.0-54.0); HEMOGLOBIN 9.9 g/dL (13.5-17.5)
--- NOTE | 2019-02-24 11:45 | NUR ---
BATH OFFERED AT THIS TIME. PT REFUSED. COMPLETE LINEN CHANGE PROVIDED. ASSISTED PT BACK TO BED. DENIES FURTHER NEEDS AT THIS TIME. WILL CONTINUE TO MONITOR.
--- NOTE | 2019-02-24 12:36 | NUR ---
POTASSIUM RECHECK 3.8. NO ACTION NEEDED AT THIS TIME PER ELECTROLYTE PROTOCOL.
--- NOTE | 2019-02-24 14:32 | EC ---
PATIENT:RASHAWN WATSON DATE OF SERVICE: 02/22/19 SEX: M MEDICAL RECORD: [id number] DATE OF : [birth year] LOCATION:[place] [address] AGE OF PATIENT: 84 ADMISSION DATE: 02/22/19 REFERRING PHYSICIAN: INTERPRETING PHYSICIAN: TR CORTES MD ECHOCARDIOGRAM REPORT ECHO CHARGES 4 ECHO COMPLETE Date: 02/23/19 CLINICAL DIAGNOSIS: LYMPEDEMA PAF/HYPOTENSION ECHOCARDIOGRAPHIC MEASUREMENTS (adult normal given) AC root (d.<3.7cm) 3.1 cm LV Septum d (<1.2 cm> 1.5 cm Valve Excursion 1.4 cm LV Septum (systole) 2.0 cm Left Atria (s.<4.0cm> 4.7 cm LVPW d(<1.2cm) 1.3 cm RV (d.<2.3cm) 3.0 cm LVPW (sytole) 1.6 cm LV diastole(<5.6CM) 4.9 cm MV E-F(>70mm/sec) cm LV systole 2.7 cm LVOT Diameter 2.0 cm MV exc.(>10mm) cm Est.ejection fraction (50-75%) % DOPPLER: LVIT cm/sec A 60.0 cm/sec E 94.0 cm/sec LA cm/sec RVSP 50.0 mmHg LVOT 125 cm/sec AOP1/2T m/s Asc. Ao 244 cm/sec RVOT 87.0 cm/sec RA cm/sec PA 114 cm/sec AV Gradient Peak 24.0 mmHg AV Mean 11.4 mmHg AV Area 1.5 cm MV Gradient Peak 4.9 mmHg MV Mean 2.1 mmHg MV Area cm COMMENTS: Trekking Guide: Joseph RAMSEYOE Mosaic Tile Maker: 1 Dr. Cortes TAPE# PACS Pericardial Effusion N DATE OF SERVICE: 02/23/2019 PROCEDURE: Echocardiogram. FINDINGS: 1. Left ventricular chamber size is within normal limits. Left ventricular systolic function is normal at 55% to 60%. 2. Left atrium is enlarged at 4.7 cm. Right atrium and right ventricular chamber sizes are as well moderately dilated. 3. Valvular structures: Aortic valve demonstrates mild calcific aortic ECHOCARDIOGRAM REPORT [id number] RASHAWN WATSON stenosis, valve area calculates to 1.5 cm-squared. There is a gradient of 24 mm across the valve. The remaining valvular structures have normal structure and motion. 4. Doppler interrogation elsewise reveals trace mitral regurgitation, moderate tricuspid regurgitation, no other valvular insufficiency or stenosis; however, pulmonary systolic pressure is elevated estimated at 50 mmHg. 5. No evidence of pericardial effusion or left ventricular thrombus. TRANSINT:[id number] Voice Confirmation ID: [id number] DOCUMENT ID: [id number] TR CORTES MD at 1432 CC: [id number] DICTATION DATE: 02/23/19 1230 FINISH PATCHER: 02/23/19 1342 ADM IN [facility] [address] [place] [id number]
--- NOTE | 2019-02-24 19:00 | NUR ---
REPORT RECEIVED, SHIFT ASSESSMENT COMPLETE SEE FLOW SHEET, PT AAOx4, [place]AGA, LEFT WRIST 20g PIV INFUSING MEDS PER MAR/ORDERS, TREJO CATH TO GRAVITY BAG PATENT WITH VOID, BILAT LOWER EXTREMITIES SCALY, SCABS/SORES NOTED, EDEMATIOUS, ELEVATED EXTREMITIES AND BRIDGED HEELS, NSR ON CM OTHER VSS, REPOSITIONED FOR COMFORT IN BED, HOB ELEVATED ABOVE 30 DEGREES, PT DENIES PAIN OR NEEDS AT THIS TIME, WILL CONTINUE TO MONITOR
--- NOTE | 2019-02-24 21:00 | NUR ---
PT C/O HEEL PAIN, FOAM HEEL PROTECTORS PLACED ON BLE, ELEVATED BLE WITH PILLOWS, PILLOW PLACED BETWEEN KNEES/LEGS, PT STATES RELEIF OF PAIN, VSS, WILL CONTINUE TO ASSESS
--- NOTE | 2019-02-24 23:00 | NUR ---
PT RESTING COMFORTABLY IN BED, DENIES PAIN AT THIS TIME, NO ACUTE CHANGES NOTED FROM INITIAL ASSESSMENT, VSS, BLE ELEVATED, PT SLEEPS ON LEFT SIDE WITH PILLOW BETWEEN KNEES/LEGS, FOAM HEEL PROTECTORS ON BLE, CALL LIGHT AND BEDSIDE TABLE IN REACH, SR UP x2, BED ALARM ON, SAFTEY PRECAUTIONS IN PLACE, WILL CONTINUE TO MONITOR
[2019-02-25] VITALS (12 sets, daily range): BP systolic 102–134; BP diastolic 38–59
--- NOTE | 2019-02-25 03:30 | NUR ---
ASSISTED PT TO SIT UP ON BEDSIDE PER REQUEST, PT TOLLERATED MOVEMENT AND SITTING WITH NO ACUTE S/S OF DISTRESS, RN AT BEDSIDE WHILE PT SITTING UP, OFFERED BED CHG BATH PT REFUSED AT THIS TIME, PT STATED HE WILL WAIT UNTIL HE IS TRANSFERD TO OTHER FLOOR UNIT TO GET BATH, INFORMED PT ABOUT UNKNOWN TIME UNTIL AVALIABLE ROOM IS AVALIABLE, PT STATED HE WIOULD LIKE TO WAIT, SPOTLIGHT OPERATOR AMANDA NOTIFIED OF PT REFUSAL OF CHG BATH, COMPLETE LINEN AMD GOWN CHANGE COMPLETED, PT REPOSITIONED BACK IN BED FOR COMFORT, ELEVATED BLE WITH PILLOWS, HEEL PROTECTORS REPOSITIONED, HOB ELEVATED PER ORDERS, VSS, WILL CONTINUE TO MONITOR
--- NOTE | 2019-02-25 04:30 | NUR ---
PT C/O BLE PAIN BURNING ACHING, REQUESTED TO HAVE PILOWS REMOVED FROM UNDER LEGS, REPOSITIONED PT FOR COMFORT, PT STATED PAIN RELEIF AT THIS TIME, VSS, NO FURTHER NEEDS AT THIS TIME WILL CONTINUE TO MONITOR
[2019-02-25 05:39] LABS: BASOPHILS 0.2 % (0-2); EOSINOPHILS 6.4 % (0-7); HEMATOCRIT 28.8 % (42.0-54.0); HEMOGLOBIN 9.2 g/dL (13.5-17.5); IMMATURE GRANULOCYTES 0.4 % (0-5); LYMPHOCYTES 11.2 % (15-50); MCH 24.9 pg (26.0-34.0); MCHC 31.9 g/dL (31.0-37.0); MCV 77.8 fL (80.0-100.0); MEAN PLATELET VOLUME 9.2 fL (7.4-10.4); NEUTROPHILS 73.8 % (40-80); PLATELET COUNT 220 10x3/uL (130-400); RDW 19.4 % (11.5-14.5); WBC 9.9 10x3/uL (4.8-10.8)
[2019-02-25 06:03] LABS: CARBON DIOXIDE 24.8 mmol/L (21.0-32.0); CREATININE - SERUM 1.3 mg/dL (0.6-1.3); POTASSIUM - SERUM 3.8 mmol/L (3.5-5.1)
--- NOTE | 2019-02-25 06:30 | NUR ---
BLE CLEANED WITH CHG AND SOAP WATER, DRIED AND SORES CHAD PER WOUND CARE NURSE, FOAM HEEL PROTECTORS PLACED ON BLE, EXTREMITIES ELEVATED, TREJO CARE COMPLETED PER ORDERS, SURE CARE WIPES USED AFTER SOAP AND CHG CLEANS, YELLOW GOWN REPLACED, VSS, REPOSITIONED IN BED FOR COMFORT, DENIES PAIN OR NEEDS, WILL CONTINUE TO MONITOR
--- NOTE | 2019-02-25 07:19 | NUR ---
CALLED [facility], UPDATE GIVEN, ORDERS RECEIVED TO TRANSFER PT TO MED-SURG FLOOR, LOCAL GOVERNMENT LEGISLATOR AND SUPERVISOR COATING NOTIFIED, DAY SHIFT RN AWARE OF TRANSFER
--- NOTE | 2019-02-25 09:24 | NUR ---
PER DR SARAVIA, VENTURA TREJO.
--- NOTE | 2019-02-25 10:47 | NUR ---
Nutrition Follow-up: Pt reports appetite improving. Diet: Diabetic Wt: 216# Last BM: CANDY MAKER HELPER per pt Labs reviewed Meds reviewed Rec cardiac diet; no h/o DM noted. RD following.
--- NOTE | 2019-02-25 10:55 | NUR ---
TREJO DC AT THIS TIME, CATHETER TIP INTACT. UP IN CHAIR AT THIS TIME. PER PHYSICAL THERAPY, PT WALKED 40 FT. NO ACUTE DISTRES NOTED. VSS. WILL CONTINUE PLAN OF CARE.
--- NOTE | 2019-02-25 12:24 | NUR ---
UP IN CHAIR BESIDE BED AT THIS TIME. NO ACUTE DISTRESS NOTED. VSS. CALL LIGHT IN REACH. WILL CONTINUE PLAN OF CARE.
--- NOTE | 2019-02-25 14:02 | NUR ---
NOTED PT TO TRANSFER TO ROOM 2140. REPORT CALLED TO RECIEVING NURSE, JULIA. WILL TRANSFER PT SHORTLY.
--- NOTE | 2019-02-25 14:08 | NUR ---
RECEIVED REPORT FROM TEODORO FLOOD.
--- NOTE | 2019-02-25 14:31 | NUR ---
G BATH OFFERED A SECOND TIME TO PT BEFORE TRANSFERRING TO FLOOR, PT REFUSED STATING HE WANTED TO WAIT UNTIL HE COULD TAKE A SHOWER.
--- NOTE | 2019-02-25 14:51 | NUR ---
PT TRANSFERRED TO 2140 AT THIS TIME VIA WHEELCHAIR WITH ALL PERSONAL ITEMS. NO ACUTE DISTRESS NOTED. NO FURTHER ACTIONS.
--- NOTE | 2019-02-25 15:03 | NUR ---
1447-RECEIVED TO ROOM VIA WHEELCHAIR. SALINE LOCK SEEN TO LEFT FA. BRUISE SEEN TO RIGHT HIP/BUTTOCK AREA. PATIENT IS INSTRUCTED TO USE CALL LIGHT FOR ALL NEEDS. PLACED ON HEART MONITOR SHOWING SR W OCC PAC, HR 77.
--- NOTE | 2019-02-25 19:10 | NUR ---
PT CARE ASSUMED. BEDSIDE SHIFT REPORT COMPLETE. PT RESTING IN BED RR EVEN AND UNLABORED. NO S/S OF DISTRESS NOTED. DENIES NEEDS AT THIS TIME. CALL LIGHT IN REACH. REPOSITIONED PT. WILL CTM.
[2019-02-26 01:04] VITALS: BP 121/50
--- NOTE | 2019-02-26 05:54 | NUR ---
PROVIDED LINEN CHANGE. PT REQUESTED TYLENOL FOR PAIN THEN SAID HE FELT BETTER AND REFUSED. NO FURTHER NEEDS EXPRESSED. WILL CTM.
[2019-02-26 06:42] LABS: BASOPHILS 0.2 % (0-2); HEMATOCRIT 29.5 % (42.0-54.0); HEMOGLOBIN 9.4 g/dL (13.5-17.5); IMMATURE GRANULOCYTES 0.3 % (0-5); LYMPHOCYTES 14.9 % (15-50); MCH 24.6 pg (26.0-34.0); MCHC 31.9 g/dL (31.0-37.0); MCV 77.2 fL (80.0-100.0); MEAN PLATELET VOLUME 9.1 fL (7.4-10.4); MONOCYTES 11.7 % (2-11); NEUTROPHILS 65.9 % (40-80); PLATELET COUNT 243 10x3/uL (130-400); RBC 3.82 10x6/uL (4.20-6.10); RDW 19.7 % (11.5-14.5); WBC 8.7 10x3/uL (4.8-10.8)
[2019-02-26 06:49] VITALS: BP 110/44
[2019-02-26 06:56] LABS: CALCIUM 7.9 mg/dL (8.5-10.1); CARBON DIOXIDE 25.7 mmol/L (21.0-32.0); CREATININE - SERUM 1.3 mg/dL (0.6-1.3); POTASSIUM - SERUM 3.7 mmol/L (3.5-5.1)
--- NOTE | 2019-02-26 07:25 | NUR ---
ROUNDING DONE WITH PATIENT LAYING ON LEFT SIDE, HOB AT 30 DEGREES. LEFT HAND PIV SEEN WITH NS INFUSING AT 30 DEGREES. ON HEART MONITOR. RESTING WITH EYES CLOSED, RESP EVEN. WILL CPOC.
[2019-02-26 08:30] VITALS: BP 96/41
[2019-02-26 12:00] VITALS: BP 116/39
--- NOTE | 2019-02-26 13:14 | NUR ---
DENIES NEEDS AT THIS TIME. WILL CONTINUE TO FOLLOW.
--- NOTE | 2019-02-26 14:40 | NUR ---
UP IN HALLWAY WITH THERAPY AND PATIENT'S OWN ROLLING WALKER.
[2019-02-26 16:30] VITALS: BP 114/51
--- NOTE | 2019-02-26 19:00 | NUR ---
PT CARE ASSUMED. BEDSIDE SHIFT REPORT COMPLETE. PT SITTING UP ON SIDE OF BED. RR EVEN AND UNLABORED. DENIES NEEDS AT THIS TIME. NO S/S OF DISTRESS NOTED. HOB ELEVATED [address] PRECAUTIONS IN PLACE. CALL LIGHT IN REACH. WILL CTM.
[2019-02-26 20:00] VITALS: BP 112/59
[2019-02-27] VITALS: BP 120/51
--- NOTE | 2019-02-27 00:45 | NUR ---
PROVIDED LINEN CHANGE. NO FURTHER NEEDS EXPRESSED AT THIS TIME.
[2019-02-27 04:00] VITALS: BP 121/62
[2019-02-27 06:05] LABS: CALCIUM 8.2 mg/dL (8.5-10.1); CARBON DIOXIDE 22.5 mmol/L (21.0-32.0); CREATININE - SERUM 1.3 mg/dL (0.6-1.3); POTASSIUM - SERUM 3.5 mmol/L (3.5-5.1)
[2019-02-27 06:15] LABS: BASOPHILS 0.4 % (0-2); HEMATOCRIT 30.3 % (42.0-54.0); HEMOGLOBIN 9.9 g/dL (13.5-17.5); IMMATURE GRANULOCYTES 0.3 % (0-5); LYMPHOCYTES 16.5 % (15-50); MCH 25.1 pg (26.0-34.0); MCHC 32.7 g/dL (31.0-37.0); MCV 76.9 fL (80.0-100.0); MEAN PLATELET VOLUME 9.3 fL (7.4-10.4); MONOCYTES 9.7 % (2-11); NEUTROPHILS 64.1 % (40-80); RBC 3.94 10x6/uL (4.20-6.10); RDW 19.6 % (11.5-14.5); WBC 8.9 10x3/uL (4.8-10.8)
[2019-02-27 06:36] LABS: PLATELET COUNT 303 10x3/uL (130-400)
[2019-02-27 08:30] VITALS: BP 113/47
--- NOTE | 2019-02-27 08:43 | NUR ---
PATIENT IS SITTING UP AT THIS TIME. HE IS EATTING BREAKFAST. HE DENIES ANY NEEDS AT THIS TIME.
--- NOTE | 2019-02-27 11:08 | OP ---
PATIENT NAME: RASHAWN WATSON MEDICAL RECORD: [id number] :37 LOCATION:D.M2 D.2140 ADMISSION DATE:02/22/19 SURGEON: JANICE ESPANA MD DATE OF OPERATION: 02/22/2019 PREOPERATIVE DIAGNOSIS: 1. Blood loss anemia requiring transfusions. 2. Anticoagulation, on Xarelto. POSTOPERATIVE DIAGNOSES: 1. Status blood loss anemia requiring transfusions with bleeding coming from a prepyloric acute cratered gastric ulcer. 2. Presbyesophagus. 3. 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 4. Type 4 paraesophageal hernia. 5. Possible procedural aspiration. 6. Poor colonic prep. 7. Four minute rectal polyps. 8. Very poor anal sphincter tone. 9. 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 I do not think it is a primary gastrointestinal neoplasm. 10. 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 11. Moderate left-sided diverticulosis. 12. Symmetric large boggy prostate. 13. Very poor anal sphincter tone. PROCEDURES: 1. Esophagogastroduodenoscopy with antral biopsies. I placed 3 endoscopic clips for procedural hemostasis. 2. Submucosal tattooing in 4 quadrants around the gastric intramural mass. 3. Total colonoscopy to cecum. 4. Ablation of 4 minute polyps with the argon plasma adapted physical education specialist. These were not biopsied. SURGEON: Janice Espana MD [place] LINE ATTENDANT: None. BLOOD LOSS: 50 cc. ANESTHESIA: IV sedation. COMPLICATIONS: None. The risks, possible complications and alternatives to the procedure were explained to the patient. He elects to proceed. Due to the poor prep, even after a 2-day prep, I can only exclude colorectal malignancies and obstructing colorectal masses. OPERATIVE COURSE: The patient was conveyed to the endoscopy suite electively on 02/22/2019. It was necessary for the anesthesia staff to be present during the procedure due to the possible need for airway manipulation as well as suctioning OPERATIVE REPORT [id number] RASHAWN WATSON on the airway, which was necessary. IV sedation was induced by the anesthesia staff. A bite block was inserted. A gastroscope was inserted into the mouth. It was advanced easily into the hypopharynx. The esophagus was easily intubated as were the stomach and duodenum. There was contact bleeding in the stomach from the patient's Xarelto. Retroflexed and angulus views were obtained. I biopsied the ulcer utilizing the cold endoscopic biopsy forceps. It bled rather significantly. I then grasped the bleeding areas and cauterized them with the hot biopsy forceps. There was still some bleeding. I then laid down a row of 3 endoscopic clips, which resulted in complete hemostasis. I then obtained several images of the intramural mass. Biopsies of this would not have been fruitful. They would have only producing false negative result as there was normal mucosa overlying the mass. It is not ulcerated. It is firm. In order to better identify it when it is resected, I performed a submucosal injection of Farida ink at 4 quadrants around the mass. 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 After the procedure, I reviewed the endoscopic photographs with Dr. Vegas as well as with Dr. 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 One option would be endoscopic ultrasound, which could be done to determine in what layer the mass arises. Another thing to do would be to do a CT scan to ensure that the mass has not metastasized. However, I think I might not opt for endoscopic ultrasound as the mass is going to need to be removed anyhow and it can be analyzed after removal. I withdrew the gastroscope under direct vision. The patient was turned 180 degrees and placed in the Montemayor position. Digital rectal examination was performed. The patient had very poor anal sphincter tone and after the procedure, I spoke with the patient and he has had fecal incontinence. I think this may be due to a neurologic disorder, likely spinal stenosis. There was a perianal lesion, which was not biopsied. It was about 5 cm from the anal verge. It is ulcerated and indurated. I believe may represent Sehpherd's disease or some type of skin malignancy. I do not think it represents anal cancer. I do not think it represents a primary gastrointestinal issue. A colonoscope was inserted through the anus. I insufflated; however, due to the patient's poor anal sphincter tone most of the gas escaped out through the anus. Therefore, we had to clinch the buttocks together to keep the insufflation in the large bowel. I advanced the endoscope. I advanced to the cecum. I slowly withdrew the endoscope. I irrigated and aspirated extensively. A combination of normal imaging and narrow band imaging were utilized. I did not biopsy the small polyps in the colorectal area as this would predispose him to bleeding, instead I ablated the 4 polyps with the argon plasma adapted physical education specialist utilizing the right colon setting in the forced mode. Due to the inability to retain gas, I was unable to perform a retroflexed view in the rectum. The endoscope was then withdrawn under direct vision. The patient at one time when we were performing a colonoscopy and he was in the decubitus position with the left side down, he retched and some bile came out of his mouth, which was quickly suctioned. We did not believe that the patient had suffered an aspiration. However, post-procedurally he had O2 saturation on room OPERATIVE REPORT [id number] WALTERRASHAWN Andrew air of around 88%. Even after several hours, it took 4 liters by nasal cannula to get him up into the 90s. A chest x-ray revealed a left pleural effusion, which I think probably preceded this endoscopic procedure. Also, a significant left lower lobe pneumonia. I was also concerned about free air under the right hemidiaphragm. Dr. Arevalo was concerned as well. He recommended a CT scan, which we obtained without IV contrast due to the patient's elevated creatinine. It did not reveal a pneumoperitoneum. I really could not even see the gastric mass on CT scan, so perhaps this is a small intramural mass. After discussing the case with Dr. Mark, due to the patient's frailty and history of pulmonary problems in the past, we elected to place the patient in the intensive care unit on IV antibiotics. We are gping to consult Dr. Siu of the pulmonary service. TRANSINT:[id number] Voice Confirmation ID: [id number] DOCUMENT ID: [id number] JANICE ESPANA MD at 1108 CC: TONEY SIU MD, ,JANELLE Ordonez, TR MORA and ALEJANDRA,[id number] DICTATION DATE: 02/22/191919 DIAMOND CLEAVER: 02/23/19 0122 [facility] IN [facility] [address] [facility], [facility]
[2019-02-27 12:45] VITALS: BP 117/76
--- NOTE | 2019-02-27 16:00 | NUR ---
PATIENT IS SITTING UP ON THE EDGE OF THE BED. HE DENIES ANY NEEDS AT THIS TIME.
[2019-02-27 16:45] VITALS: BP 118/67
--- NOTE | 2019-02-27 19:15 | NUR ---
RECEIVED CARE FROM DAY NURSE. LYING IN BED WATCHING TV. HOB 30 DEGREES. REPORTS NO NEEDS AT THIS TIME. CALL LIGHT AT SIDE. IV INFUSING PER ORDER TO PATENT LEFT HAND.
[2019-02-27 22:06] VITALS: BP 108/51
[2019-02-28] VITALS (7 sets, daily range): BP systolic 99–123; BP diastolic 47–57
--- NOTE | 2019-02-28 01:10 | NUR ---
I have reviewed this patient and I concur with the Shift Assessment completed by the Licensed Practical Nurse today this shift.
--- NOTE | 2019-02-28 07:48 | NUR ---
PATIENT RESTING WITH BLANKETS OVER HIS FACE. IV TO THE LEFT HAD IS PATENT AND INFUSING NORMAL SALINE. BED IS IN LOW POSITION AND CALL LIGHT IS IN REACH. PATIENT STATES HE WOULD LIKE TO BE LEFT ALONE FOR A SHORT BIT TO GET SOME SLEEP. WHTIE BOARD UPDATED.
--- NOTE | 2019-02-28 19:21 | NUR ---
PATIENT LAYING IN BED. NO COMPLAINTS AT THIS TIME. NO DISTRESS NOTED.
[2019-03-01 04:15] VITALS: BP 120/32
[2019-03-01 05:28] LABS: BASOPHILS 0.6 % (0-2); EOSINOPHILS 12.2 % (0-7); HEMATOCRIT 29.4 % (42.0-54.0); HEMOGLOBIN 9.4 g/dL (13.5-17.5); IMMATURE GRANULOCYTES 0.4 % (0-5); LYMPHOCYTES 14.9 % (15-50); MCH 24.9 pg (26.0-34.0); MEAN PLATELET VOLUME 9.2 fL (7.4-10.4); MONOCYTES 9.6 % (2-11); NEUTROPHILS 62.3 % (40-80); PLATELET COUNT 307 10x3/uL (130-400); RBC 3.77 10x6/uL (4.20-6.10); RDW 19.8 % (11.5-14.5)
[2019-03-01 05:48] LABS: ANION GAP 14.4 mmol/L (8-16); CALCIUM 7.9 mg/dL (8.5-10.1); CARBON DIOXIDE 24.3 mmol/L (21.0-32.0); CREATININE - SERUM 1.4 mg/dL (0.6-1.3); POTASSIUM - SERUM 3.7 mmol/L (3.5-5.1)
--- NOTE | 2019-03-01 06:00 | NUR ---
I have reviewed this patient and I concur with the Shift Assessment completed by the Licensed Practical Nurse today this shift.
--- NOTE | 2019-03-01 07:53 | NUR ---
DR OLIVEIRA ROUNDS AND ASK IF PT HAS EVALUATED AND SIGNED OFF ON THIS PATIENT. WILL ASK PT AGAIN WHEN THEY ROUND.
[2019-03-01 08:14] VITALS: BP 123/42
--- NOTE | 2019-03-01 09:05 | NUR ---
PHYSICAL THERAPY HAS BEEN GETTING THE PATIENT UP DAILY. NOTES ARE IN THE CHART. DR OLIVEIRA WAS WONDERING ABOUT PHYSICAL THERAPY AND DR SARAVIA SAID HE IS OK TO D/C FROM HIS STANDPOINT. WILL WATCH FOR ORDERS.
[2019-03-01 11:17] VITALS: BP 145/64
[2019-03-01 15:23] VITALS: BP 130/44
--- NOTE | 2019-03-01 16:25 | NUR ---
DR SARAVIA SAYS THAT THE PATIENT IS GOOD TO BE DISCHARGED FAR HE IS CONSERNED. DR OLIVEIRA PUT A NOTE IN ABOUT DISCUSSING REHAB WITH THE FAMILY. THE PATIENT STATES THAT HE IS NOT GOING TO REHAB.
--- NOTE | 2019-03-01 16:34 | NUR ---
DR TERRY AGREES THAT THERE IS NO CURRENT D/C ORDER , TO WAIT AND SEE WHAT IS DECIDED TOMORROW. IF THE PATIENT GOES TO REHAB, OR HOME WITH HOME HEALTH.
--- NOTE | 2019-03-01 17:01 | MORECARE ---
CASE MANAGEMENT DISCHARGE SUMMARY PATIENT: RASHAWN WATSON UNIT: [id number] ADM DATE: 02/22/19 AGE: 84 : 36 SEX: M ROOM/BED: D.2140 AUTHOR: NADIA DELGADO PHYSICIAN: REFERRING PHYSICIAN: JANICE ESPANA MD DATE OF SERVICE: 03/01/19 Discharge Plan Patient Name: RASHAWN WATSON Facility: [facility]:[place] : 1935 Planned Disposition: Home with Home Health Anticipated Discharge Date: 03/02/19 Discharge Date: Expected LOS: 8 Initial Reviewer: [email or web address] Initial Review Date: 02/23/2019 Generated: 03/01/19 6:01 pm Comments DCP- Discharge Planning Updated by [email or web address]: Marvin Jessica on 03/01/19 3:[address] Patient Name: RASHAWN WATSON Encounter No: [id number] : 1935 Primary Insurance: MEDICARE A & B Anticipated DC Date: 03-02-2019 Planned Disposition: Home with Home Health External Planned Provider: NO PROVIDER PREFERENCE DCP follow-up note: CM MET WITH PT IN ROOM REGARDING DISCHARGE PLANNING AND NEEDS, DISCUSSED AVAILABILITY OF REHAB SERVICES, PROVIDERS AND LOCATIONS. PT STATES HE IS NOT GOING BACK TO REHAB, HE HAS ALREADY BEEN. CM DISCUSSED AVAILABILITY OF HOME HEALTH, PROVIDERS AND SERVICES. PT STATES HE WILL ACCEPT HOME HEALTH AND HAS NO PROVIDER PREFERENCE, CHOICE SIGNED. PT DENIES NEED OF FURTHER MEDICAL EQUIPMENT AND DENIES FURTHER DISCHARGE NEEDS. IMPORTANT MESSAGE FROM MEDICARE PROVIDED AND EXPLAINED. PT DECLINES REHAB SERVICES AND WILL ACCEPT HOME HEALTH FOR NURSING AND THERAPY. CM TO ARRANGE HOME HEALTH WITH PHYSICIAN AGREEMENT AND ORDERS. JORJE Driver DCP- Discharge Planning Updated by [id number]: Sandrine Singh on 02/23/19 3:[address] Patient Name: RASHAWN WATSON Admission Status: Elective Accout number: [id number] Admission Date: 02-22-2019 : 1935 Admission Diagnosis:IRON DEFICIENCY ANEMIA, UNSPECIFIED Attending: JANICE ESPANA Current LOS: 1 Anticipated DC Date: Planned Disposition: Home Primary Insurance: MEDICARE A & B Discharge Planning Comments: CM met with patient at bedside after explaining CM role and obtaining verbal consent. Patient lives at home with his , daughter and grandsons where he is independent with his care and plans to return there upon discharge. Patient feels this would be a safe discharge. Patient states he has 14 steps going to his bedroom. CM discussed availability / needs of home health and medical equipment. Patient denies any discharge needs at this time. Patient states his daughter was setting up HH or a caregiver when he goes home. Patient states he will have his family drive him home upon discharge. CM will continue to follow and assist as needed with discharge planning / needs. Welding Machine Operator Thermit: Sandrine ANDINOA - Discharge Planning Initial Assessment Updated by [email or web address]: Sandrine Singh on 02/23/19 4:22 pm * Is the patient Alert and Oriented? Yes * How many steps to enter\exit or inside your home? * PCP [place] * [facility] * Preadmission Environment Home with Family * ADLs Independent * Other Equipment WALKER W SEAT * List name and contact numbers for known caregivers / representatives who currently or will assist patient after discharge: EARLINE WATSON - DAUGHTER- [phone] * Verbal permission to speak to the caregivers and representatives has been obtained from the patient. Yes * Community resources currently utilized None * Additional services required to return to the preadmission environment? No * Can the patient safely return to the preadmission environment? Yes * Has this patient been hospitalized within the prior 30 days at any hospital? No Coverage Notice Reviewer: [id number] Brad Jessica Notice Issued Date-Time: 03/01/2019 16:15 Notice Type: IM Discharge Notice Notice Delivered To: Patient Relationship to Patient: Medical Unit Secretary Name: Delivery Method: HAND - Hand Delivered Radha Days: Prior Verbal Notification: Recipient Understood Notice: Yes Recipient Signature: Yes Med Rec Note Co-signed by Attending: Coverage Notice Comment: Reviewer: [id number] Brad Jessica Notice Issued Date-Time: 03/01/2019 16:15 Notice Type: Patient Choice Letter Notice Delivered To: Patient Relationship to Patient: Medical Unit Secretary Name: Delivery Method: HAND - Hand Delivered Radha Days: Prior Verbal Notification: Recipient Understood Notice: Yes Recipient Signature: Yes Med Rec Note Co-signed by Attending: Coverage Notice Comment: NO HOME HEALTH PROVIDER PREFERENCE Last DP export: 02/23/19 3:29 p Patient Name: RASHAWN WATSON Page [phone] at 1701 All edits/amendments must be made on the electronic document DICTATION DATE: 03/01/191700 GAGE DESIGNER: LISA 03/01/191700 RPT#: [id number] DC DATE: STATUS: ADM IN [facility] [address] [place] [address] END OF REPORT
--- NOTE | 2019-03-01 18:30 | NUR ---
DR ESPANA ROUNDED AND SAID THAT HE IS PUTTING IN A DISCHARGE ORDER. DR OLIVEIRA HAS NOT SIGNED OFF YET. WHEN THE DISCHARGE ORDER COMES IN , IT IS GOOD FOR [address]'S ON THE CASE MUST SIGN OFF ON THIS PATIENT BEFORE HE CAN GO HOME. HOME HEALTH MOST BE ARRANGED BEFORE HE CAN GO HOME.
--- NOTE | 2019-03-01 19:24 | NUR ---
DR ESPANA PAGED. DR. ESPANA NOTIFIED THAT CASE MANAGEMENT WANTED TO SET UP HOME HEALTH FOR PATIENT AND THAT IT WOULD BE TOMORROW BEFORE THEY COULD SET IT UP. DR. ESPANA SAID TO DISCHARGE PATIENT TONIGHT BECAUSE PATIENT DID NOT WANT HOME HEALTH OR REHAB AND THAT HIS DAUGHTER IS A DOCTOR.
--- NOTE | 2019-03-02 08:25 | MORECARE ---
CASE MANAGEMENT DISCHARGE SUMMARY PATIENT: RASHAWN WATSON UNIT: [id number] ADM DATE: 02/22/19 AGE: 84 : 36 SEX: M ROOM/BED: D.2140 AUTHOR: NADIA DELGADO PHYSICIAN: REFERRING PHYSICIAN: JANICE ESPANA MD DATE OF SERVICE: 03/02/19 Discharge Plan Patient Name: RASHAWN WATSON Facility: [facility]:[place] : 1935 Planned Disposition: Home with Home Health Anticipated Discharge Date: 03/01/19 Discharge Date: 03/01/2019 Expected LOS: 7 Initial Reviewer: [id number] Initial Review Date: 02/23/2019 Generated: 03/02/19 9:25 am Comments DCP- Discharge Planning Updated by [email or web address]: Marvin Jessica on 03/01/19 3:[address] Patient Name: RASHAWN WATSON Encounter No: [id number] : 1935 Primary Insurance: MEDICARE A & B Anticipated DC Date: 03-02-2019 Planned Disposition: Home with Home Health External Planned Provider: NO PROVIDER PREFERENCE DCP follow-up note: CM MET WITH PT IN ROOM REGARDING DISCHARGE PLANNING AND NEEDS, DISCUSSED AVAILABILITY OF REHAB SERVICES, PROVIDERS AND LOCATIONS. PT STATES HE IS NOT GOING BACK TO REHAB, HE HAS ALREADY BEEN. CM DISCUSSED AVAILABILITY OF HOME HEALTH, PROVIDERS AND SERVICES. PT STATES HE WILL ACCEPT HOME HEALTH AND HAS NO PROVIDER PREFERENCE, CHOICE SIGNED. PT DENIES NEED OF FURTHER MEDICAL EQUIPMENT AND DENIES FURTHER DISCHARGE NEEDS. IMPORTANT MESSAGE FROM MEDICARE PROVIDED AND EXPLAINED. PT DECLINES REHAB SERVICES AND WILL ACCEPT HOME HEALTH FOR NURSING AND THERAPY. CM TO ARRANGE HOME HEALTH WITH PHYSICIAN AGREEMENT AND ORDERS. JORJE Driver DCP- Discharge Planning Updated by [email or web address]: Sandrine Singh on 02/23/19 3:[address] Patient Name: RASHAWN WATSON Admission Status: Elective Accout number: [id number] Admission Date: 02-22-2019 : 1935 Admission Diagnosis:IRON DEFICIENCY ANEMIA, UNSPECIFIED Attending: JANICE ESPANA Current LOS: 1 Anticipated DC Date: Planned Disposition: Home Primary Insurance: MEDICARE A & B Discharge Planning Comments: CM met with patient at bedside after explaining CM role and obtaining verbal consent. Patient lives at home with his , daughter and grandsons where he is independent with his care and plans to return there upon discharge. Patient feels this would be a safe discharge. Patient states he has 14 steps going to his bedroom. CM discussed availability / needs of home health and medical equipment. Patient denies any discharge needs at this time. Patient states his daughter was setting up HH or a caregiver when he goes home. Patient states he will have his family drive him home upon discharge. CM will continue to follow and assist as needed with discharge planning / needs. Cracker Dough Mixer: Sandrine Singh DCCORNELIUSA - Discharge Planning Initial Assessment Updated by [id number]: Sandrine Singh on 02/23/19 4:22 pm * Is the patient Alert and Oriented? Yes * How many steps to enter\exit or inside your home? * PCP [place]W * Pharmacy [facility] * Preadmission Environment Home with Family * ADLs Independent * Other Equipment WALKER W SEAT * List name and contact numbers for known caregivers / representatives who currently or will assist patient after discharge: EARLINE WATSON - DAUGHTER- [phone] * Verbal permission to speak to the caregivers and representatives has been obtained from the patient. Yes * Community resources currently utilized None * Additional services required to return to the preadmission environment? No * Can the patient safely return to the preadmission environment? Yes * Has this patient been hospitalized within the prior 30 days at any hospital? No Coverage Notice Reviewer: [id number] Brad Jessica Notice Issued Date-Time: 03/01/2019 16:15 Notice Type: IM Discharge Notice Notice Delivered To: Patient Relationship to Patient: Sider Mechanic Name: Delivery Method: HAND - Hand Delivered Radha Days: Prior Verbal Notification: Recipient Understood Notice: Yes Recipient Signature: Yes Med Rec Note Co-signed by Attending: Coverage Notice Comment: Reviewer: Brad Jessica Notice Issued Date-Time: 03/01/2019 16:15 Notice Type: Patient Choice Letter Notice Delivered To: Patient Relationship to Patient: Sider Mechanic Name: Delivery Method: HAND - Hand Delivered Radha Days: Prior Verbal Notification: Recipient Understood Notice: Yes Recipient Signature: Yes Med Rec Note Co-signed by Attending: Coverage Notice Comment: NO HOME HEALTH PROVIDER PREFERENCE Last DP export: 03/01/19 4:01 p Patient Name: RASHAWN WATSON Page [phone] at 0825 All edits/amendments must be made on the electronic document DICTATION DATE: 03/02/19824 MEDICAL RECORDS CUSTODIAN: LISA 03/02/19824 RPT#: [id number] DC DATE:03/01/19 STATUS: DIS IN [facility] [address] [place] [address] END OF REPORT
--- NOTE | 2019-03-02 08:32 | MORECARE ---
CASE MANAGEMENT DISCHARGE SUMMARY PATIENT: RASHAWN WATSON UNIT: [id number] ADM DATE: 02/22/19 AGE: 84 : 36 SEX: M ROOM/BED: D.2140 AUTHOR: DANNY,DOC PHYSICIAN: REFERRING PHYSICIAN: JANICE ESPANA MD DATE OF SERVICE: 03/02/19 Discharge Plan Patient Name: RASHAWN WATSON Facility: [facility]:[place] : 1935 Planned Disposition: Home with Home Health Anticipated Discharge Date: 03/01/19 Discharge Date: 03/01/2019 Expected LOS: 7 Initial Reviewer: [email or web address] Initial Review Date: 02/23/2019 Generated: 03/02/19 9:32 am Comments DCP- Discharge Planning Updated by [id number]: Marvin Jessica on 03/02/19 7:[address] Patient Name: RASHAWN WATSON Encounter No: [id number] : 1935 Primary Insurance: MEDICARE A & B Anticipated DC Date: 03-01-2019 Planned Disposition: Home DCP follow-up note: CM REVIEWED CHART, PT DISCHARGED HOME LAST EVENING WITHOUT HOME HEALTH ORDERS FROM PHYSICIAN WITH NO FURHTER ORDERS FOR CM FOLLOW UP. JORJE Driver DCP- Discharge Planning Updated by [id number]: Marvin Jessica on 03/01/19 3:[address] Patient Name: RASHAWN WATSON Encounter No: [id number] : 1935 Primary Insurance: MEDICARE A & B Anticipated DC Date: 03-02-2019 Planned Disposition: Home with Home Health External Planned Provider: NO PROVIDER PREFERENCE DCP follow-up note: CM MET WITH PT IN ROOM REGARDING DISCHARGE PLANNING AND NEEDS, DISCUSSED AVAILABILITY OF REHAB SERVICES, PROVIDERS AND LOCATIONS. PT STATES HE IS NOT GOING BACK TO REHAB, HE HAS ALREADY BEEN. CM DISCUSSED AVAILABILITY OF HOME HEALTH, PROVIDERS AND SERVICES. PT STATES HE WILL ACCEPT HOME HEALTH AND HAS NO PROVIDER PREFERENCE, CHOICE SIGNED. PT DENIES NEED OF FURTHER MEDICAL EQUIPMENT AND DENIES FURTHER DISCHARGE NEEDS. IMPORTANT MESSAGE FROM MEDICARE PROVIDED AND EXPLAINED. PT DECLINES REHAB SERVICES AND WILL ACCEPT HOME HEALTH FOR NURSING AND THERAPY. CM TO ARRANGE HOME HEALTH WITH PHYSICIAN AGREEMENT AND ORDERS. Marvin Aracely, CASE MANAGEMENT DCP- Discharge Planning Updated by [email or web address]: Sandrine Singh on 02/23/19 3:[address] Patient Name: RASHAWN WATSON Admission Status: Elective Accout number: [id number] Admission Date: 02-22-2019 : 1935 Admission Diagnosis:IRON DEFICIENCY ANEMIA, UNSPECIFIED Attending: JANICE ESPANA Current LOS: 1 Anticipated DC Date: Planned Disposition: Home Primary Insurance: MEDICARE A & B Discharge Planning Comments: CM met with patient at bedside after explaining CM role and obtaining verbal consent. Patient lives at home with his , daughter and grandsons where he is independent with his care and plans to return there upon discharge. Patient feels this would be a safe discharge. Patient states he has 14 steps going to his bedroom. CM discussed availability / needs of home health and medical equipment. Patient denies any discharge needs at this time. Patient states his daughter was setting up HH or a caregiver when he goes home. Patient states he will have his family drive him home upon discharge. CM will continue to follow and assist as needed with discharge planning / needs. Carpenter Form: Sandrine Singh DCPIA - Discharge Planning Initial Assessment Updated by [id number]: Sandrine Singh on 02/23/19 4:22 pm * Is the patient Alert and Oriented? Yes * How many steps to enter\exit or inside your home? * PCP [place] * Pharmacy [facility] * Preadmission Environment Home with Family * ADLs Independent * Other Equipment WALKER W SEAT * List name and contact numbers for known caregivers / representatives who currently or will assist patient after discharge: EARLINE WATSON - DAUGHTER- [phone] * Verbal permission to speak to the caregivers and representatives has been obtained from the patient. Yes * Community resources currently utilized None * Additional services required to return to the preadmission environment? No * Can the patient safely return to the preadmission environment? Yes * Has this patient been hospitalized within the prior 30 days at any hospital? No Coverage Notice Reviewer: [id number] - Marvin Jessica Notice Issued Date-Time: 03/01/2019 16:15 Notice Type: IM Discharge Notice Notice Delivered To: Patient Relationship to Patient: Secondary Set Up Man Name: Delivery Method: HAND - Hand Delivered Radha Days: Prior Verbal Notification: Recipient Understood Notice: Yes Recipient Signature: Yes Med Rec Note Co-signed by Attending: Coverage Notice Comment: Reviewer: [id number] - Marvin Jessica Notice Issued Date-Time: 03/01/2019 16:15 Notice Type: Patient Choice Letter Notice Delivered To: Patient Relationship to Patient: Secondary Set Up Man Name: Delivery Method: HAND - Hand Delivered Radha Days: Prior Verbal Notification: Recipient Understood Notice: Yes Recipient Signature: Yes Med Rec Note Co-signed by Attending: Coverage Notice Comment: NO HOME HEALTH PROVIDER PREFERENCE Last DP export: 03/02/19 7:25 a Patient Name: RASHAWN WATSON Page [phone] at 0832 All edits/amendments must be made on the electronic document DICTATION DATE: 03/02/19830 LEASE PURCHASE TRUCK DRIVER: LISA 03/02/19830 RPT#: [id number] DC DATE:03/01/19 STATUS: DIS IN [facility] [address] [place] [address] END OF REPORT
--- NOTE | 2019-03-02 14:32 | DS ---
PATIENT:RASHAWN WATSON :37 MEDICAL RECORD: [id number] DISCHARGE SUMMARY ADMISSION DATE: 02/22/19 DISCHARGE DATE: 03/01/19 PRINCIPAL DIAGNOSES: 1. Aspiration pneumonia. 2. Systemic inflammatory response syndrome and sepsis. 3. Colonic diverticulosis. 4. Acute blood loss anemia with chronic anemia. 5. Gastric ulcer by EGD. 6. Previous history of pulmonary thromboembolism. 7. Neurogenic claudication. 8. Obesity with BMI of 30. 9. Venous stasis insufficiency, severe, CEAP-6. HOSPITAL COURSE: The patient underwent EGD and colonoscopy. The patient developed an aspiration pneumonia postoperatively. This required a stay in the ICU and then transfer to the floor. The patient's primary care physician Dr. Mark and the pulmonary care team saw the patient in consultation. They felt that he did have an aspiration pneumonia. He completed a course of IV antibiotics. He is being dismissed home. TRANSINT:[id number] Voice Confirmation ID: [id number] DOCUMENT ID: [id number] JANICE ESPANA MD at 1432 CC: [id number] DICTATION DATE: 03/01/191913 TRAFFIC LIEUTENANT: 03/02/19 0339 DIS IN 03/01/[address] [facility] [address] [place] [address]
== END 2019-03-01 20:08 | disposition home or self-care (01) | DRG 862 ==
LOC: D.OPS 06:17 → D.CVICU 18:17 → D.OPS 18:19 → D.CVICU 18:21 → D.M2 18:21
PROVIDERS: Anesthesiology; Family Medicine; ADMIT Surgery; ATTEND Surgery
PROC: 0D5P8ZZ Destruction of Rectum, Via Natural or Artificial Opening Endoscopic (ICD-10-PCS; 2019-02-22)
PROC: 0DB68ZX Excision of Stomach, Via Natural or Artificial Opening Endoscopic, Diagnostic (ICD-10-PCS; principal; 2019-02-22 09:00)
DX: T81.44XA Sepsis following a procedure, initial encounter (principal); J69.0 Pneumonitis due to inhalation of food and vomit; K25.0 Acute gastric ulcer with hemorrhage; A41.9 Sepsis, unspecified organism; D62 Acute posthemorrhagic anemia; J95.89 Other postprocedural complications and disorders of respiratory system, not elsewhere classified; E03.9 Hypothyroidism, unspecified; E78.00 Pure hypercholesterolemia, unspecified; Z79.01 Long term (current) use of anticoagulants; K44.9 Diaphragmatic hernia without obstruction or gangrene; K57.90 Diverticulosis of intestine, part unspecified, without perforation or abscess without bleeding; K22.8 Other specified diseases of esophagus; K62.1 Rectal polyp; Z86.718 Personal history of other venous thrombosis and embolism; Z86.711 Personal history of pulmonary embolism; Y83.9 Surgical procedure, unspecified as the cause of abnormal reaction of the patient, or of later complication, without mention of misadventure at the time of the procedure; Y92.234 Operating room of hospital as the place of occurrence of the external cause; G89.4 Chronic pain syndrome; E66.01 Morbid (severe) obesity due to excess calories; Z68.29 Body mass index [BMI] 29.0-29.9, adult; M48.062 Spinal stenosis, lumbar region with neurogenic claudication

== ENCOUNTER 2019-04-12 08:13 | Inpatient (IN) | payer MEDICARE ==
[~2019-04-12] VITALS: Ht 177.8 cm; Wt 97.1 kg
[2019-04-13] MEDS ORDERED: SYNTHROID125 MCG PO (15:35)
[2019-04-13] MEDS ORDERED: NEURONTIN 300300 MG PO ×2 (15:36)
[2019-04-13] MEDS ORDERED: PROSCAR5 MG PO (15:37)
[2019-04-13] MEDS ORDERED: PROTONIX40 MG PO (15:37)
[2019-04-13 16:43] LABS: BASOPHILS 0.5 % (0-2); EOSINOPHILS 6.6 % (0-7); HEMATOCRIT 34.9 % (42.0-54.0); HEMOGLOBIN 10.9 g/dL (13.5-17.5); IMMATURE GRANULOCYTES 0.2 % (0-5); LYMPHOCYTES 23.2 % (15-50); MCH 26.3 pg (26.0-34.0); MCHC 31.2 g/dL (31.0-37.0); MCV 84.1 fL (80.0-100.0); MEAN PLATELET VOLUME 9.1 fL (7.4-10.4); MONOCYTES 7.6 % (2-11); NEUTROPHILS 61.9 % (40-80); RBC 4.15 10x6/uL (4.20-6.10); RDW 21.5 % (11.5-14.5); WBC 6.3 10x3/uL (4.8-10.8)
[2019-04-13 16:46] LABS: PLATELET COUNT 222 10x3/uL (130-400)
[2019-04-13 17:22] LABS: ANION GAP 11.6 mmol/L (8-16); CALCIUM 8.7 mg/dL (8.5-10.1); CARBON DIOXIDE 27.8 mmol/L (21.0-32.0); CREATININE - SERUM 1.2 mg/dL (0.6-1.3); POTASSIUM - SERUM 4.4 mmol/L (3.5-5.1)
[2019-04-14 06:48] VITALS: BP 128/57; BMI 30.7
--- NOTE | 2019-04-14 09:30 | NUR ---
SCD NOT USED DUE TO HX OF PE. PATIENTS LOWER EXTREMETIES SWOLLEN +4 PITTING EDEMA. BILATERAL WOUNDS OPEN LOWER EXTREMITIES. DR ROBERTS AND JOVI NOTIFIED OF PATIENT CONDITION.
[2019-04-14 12:46] VITALS: BP 118/56
--- NOTE | 2019-04-14 13:07 | OP ---
PATIENT NAME: RASHAWN WATSON MEDICAL RECORD: [id number] :37 LOCATION:D.MS Garcia2214 ADMISSION DATE:04/14/19 SURGEON: SANDI ROBERTS MD DATE OF OPERATION: 04/14/2019 SURGEON: Sandi Roberts MD PREOPERATIVE DIAGNOSES: Gastric mass, paraesophageal hernia, history of pulmonary embolism, perianal ulcerative mass, and essential hypertension. POSTOPERATIVE DIAGNOSES: Gastric mass, paraesophageal hernia, history of pulmonary embolism, perianal ulcerative mass, and essential hypertension. PROCEDURE PERFORMED: 1. Laparoscopic grade III paraesophageal hernia repair. 2. Laparoscopic partial gastrectomy. 3. EGD performed by Dr. Moon. 4. Excisional biopsy of perianal lesion. SURGEON: Sandi Roberts MD ELECTRIC LOCOMOTIVE CRANE OPERATOR SURGEON: Andrey Moon MD ANESTHESIA: General. COMPLICATIONS: None. SPECIMENS: 1. Partial gastrectomy. 2. Paraesophageal hernia sac. 3. Perianal lesion. ANESTHESIA: General. COMPLICATIONS: None. Case was clean contaminated. ESTIMATED BLOOD LOSS: 75 cc. OPERATIVE COURSE: After consent was obtained, the patient was taken to the operating room and placed in the supine position on the operating table. Next, general anesthesia was given via endotracheal intubation after a timeout was performed to confirm the correct patient and procedure. The abdomen was then prepped and draped in typical sterile fashion. Local anesthetic was injected just above the umbilicus. A stab incision was made with 11-blade scalpel. Using an 11-mm bladeless optical trocar, the abdomen was entered under direct laparoscopic vision. Adequate pneumoperitoneum was achieved. The abdominal cavity was inspected, no evidence of bile injury and no evidence of bleeding. The patient was then placed in the steep reverse Trendelenburg position. All remaining trocars were placed, 12-mm trocar and 5-mm trocar to the right lateral quadrants, two 5 mm trocars were placed in the left lateral quadrant, Candelario liver retractor was placed into the subxiphoid position. All were placed after administration of local anesthetic under direct laparoscopic vision. The Candelario retractor was then used to retract the left lobe of the liver, OPERATIVE REPORT [id number] RASHAWN WATSON exposing the gastroesophageal junction. The patient's upper two-thirds of his stomach was in the mediastinum. The area of gastric tattooing was noted on the anterior surface of the stomach in the upper third of the greater curvature of the stomach. At this time, Dr. Moon assisted throughout all portions of the operation. Surgically, also performed multiple EGDs throughout the operation. At this time, Dr. Moon performed an EGD to further delineate the submucosal gastric mass to allow for proper identification, again which was identified on endoscopy at the area of the tattooing in the greater curvature of the stomach. This was quite difficult at this time, due to the size of the paraesophageal hernia with the upper two-thirds of the stomach. At this time, paraesophageal hernia repair was performed. The pars flaccida was opened using the Harmonic scalpel and dissected with the harmonic to the level of the right crura. The hernia sac was dissected off the anterior and posterior surfaces of the crura and along the right crura. Once the hernia sac was clearly delineated, we turned our attention to the left lateral side. The short gastrics were taken along the exposed portion of the greater curvature and this was continued until we encountered the left crura. The left crura was skeletonized to allow for full 360 degree circumferential dissection of the hernia sac. The hernia sac was then excised and sent for permanent pathology. The mediastinum was dissected and the stomach was reduced into the abdominal cavity until approximately 5 cm of intra-abdominal esophagus were obtained. The mediastinum was copiously irrigated and suctioned. Lamont powder was applied. The hiatal hernia was then closed with an 0 polypropylene Stratafix suture. At this time, the area of stomach which was tattooed was readily exposed. At this time, a partial gastrectomy was performed along the greater curvature of the stomach using the SABRINA powered linear cutting stapler with black loads. The partial gastrectomy specimen was sent off the field and sent for frozen section as well as permanent pathology. The staple line was imbricated using 3-0 Stratafix suture. At this time, Dr. Moon performed a repeat EGD. A bowel clamp was placed on the first portion of duodenum. The stomach was inflated. A leak test was performed. At this time, the upper abdomen was filled with fluid. The stomach was insufflated and inspected. The esophagus had no areas of injury. The stomach held pressure tightly with no evidence of leak at the operation. The stomach was desufflated. The bowel clamp was removed. The abdomen was copiously irrigated and suctioned. Additional Lamont powder was applied into the left upper quadrant time. Again, the abdomen was copiously irrigated and suctioned. There was no evidence of bowel injury. No evidence of bleeding. The Candelario liver retractor was then removed. The 11 and 12-mm trocar sites were closed with a Agustin-Sylvester suture passer and 0 Vicryl suture under direct laparoscopic vision. At this time, all remaining instruments were removed. The abdomen was desufflated. Trocars were removed. Skin incisions were closed with 4-0 Monocryl, Mastisol and Steri-Strips. AT the end of the case, all needle and instrument counts were correct. No complications occurred. The drapes were removed. The patient was rolled into the right lateral decubitus position. The local anesthetic was injected around the rectum. The perianal lesion was excised using a #15 blade scalpel, electrocautery, and closed with a 3-0 Vicryl suture. It was passed off the field and sent for permanent pathology. At the end of the case, all needle and instrument counts were correct. No complications occurred. TRANSINT:[id number] Voice Confirmation ID: [id number] DOCUMENT ID: [id number] OPERATIVE REPORT [id number] [facility]ANDI Sanders MD at 1307 CC: [id number] DICTATION DATE: 04/14/19 1150 DIRECTOR OF STUDENT FINANCIAL SERVICES: 04/14/19 1222 ADM IN [facility] [address] [place] [address]
--- NOTE | 2019-04-14 13:15 | NUR ---
RECEIVED PT FROM RECOVERY, PT STATES PAIN IS AT A 9, FAMILY AT BEDSIDE, ADMINISTERED PRN PAIN MEDICATION. CONTINUE WITH PLAN OF CARE
[2019-04-14 17:30] VITALS: BP 118/56; BMI 30.7
[2019-04-14 19:00] VITALS: BP 117/65
--- NOTE | 2019-04-14 19:30 | NUR ---
A&O X 4. DRESSING TO ABDOMEN JUST CHANGED BY . ASSISTED WITH CHANGING AND CLEANING UP PT. DENIES PAIN AT THIS TIME, FAMILY AT BEDSIDE. WILL CONTINUE TO MONITOR.
[2019-04-15 01:10] VITALS: BP 103/44
[2019-04-15 05:12] VITALS: BP 88/42
[2019-04-15 06:54] LABS: BASOPHILS 0 % (0-2); EOSINOPHILS 0 % (0-7); IMMATURE GRANULOCYTES 0.1 % (0-5); LYMPHOCYTES 13.8 % (15-50); MCH 25.4 pg (26.0-34.0); MCHC 30.4 g/dL (31.0-37.0); MCV 83.8 fL (80.0-100.0); MEAN PLATELET VOLUME 9.5 fL (7.4-10.4); MONOCYTES 9.4 % (2-11); NEUTROPHILS 76.7 % (40-80); PLATELET COUNT 196 10x3/uL (130-400); RBC 3.34 10x6/uL (4.20-6.10); RDW 21.3 % (11.5-14.5); WBC 6.8 10x3/uL (4.8-10.8)
--- NOTE | 2019-04-15 07:25 | NUR ---
PT RESTING IN BED. NO SIGNS OF DISTRESS. IV TO LEFT WRIST PATENT NO REDNESS OR TENDERNESS. 5 LAP SITES TO ABD. SOME DRAINAGE. HAS TREJO NO KINKS PATENT. ON 2L NC. DENIES ANY FURTHER NEED AT THIS TIME. CALL LIGHT IN REACH. BED LOW POSITION. NO FAMILY AT BEDSIDE AT THIS TIME.
[2019-04-15 07:29] LABS: HEMOGLOBIN 8.5 g/dL (13.5-17.5)
[2019-04-15 07:33] LABS: ALBUMIN 2.4 g/dL (3.4-5.0); ANION GAP 9.7 mmol/L (8-16); BILIRUBIN - TOTAL 0.3 mg/dL (0.2-1.3); CARBON DIOXIDE 26.7 mmol/L (21.0-32.0); CREATININE - SERUM 1.2 mg/dL (0.6-1.3); POTASSIUM - SERUM 4.4 mmol/L (3.5-5.1); PROTEIN - SERUM 5.8 g/dL (6.4-8.2)
--- NOTE | 2019-04-15 08:00 | NUR ---
LYING IN BED,WITHOUT DISTRESS.CALL LIGHT IN REACH
[2019-04-15 08:08] VITALS: BP 90/43
[2019-04-15 11:20] VITALS: BP 111/52
[2019-04-15 13:07] VITALS: Ht 177.8 cm; Wt 97.1 kg
[2019-04-15 16:29] VITALS: BP 110/45
--- NOTE | 2019-04-15 18:39 | NUR ---
ALERT AND ORIENTED, [place]. RESTING IN BED. NO C/O PAIN. NO S/S OF ACUTE DISTRESS NOTED. DENIES ANY NEEDS AT THIS TIME. CALL LIGHT IN REACH. WILL CONTINUE TO MONITOR.
[2019-04-15 19:00] VITALS: BP 127/53
--- NOTE | 2019-04-15 19:30 | NUR ---
A&O X 4, REFUSES TO AMBULATE, STATES PAIN TO LOWER EXTREMETIES IS TOO MUCH AT THIS TIME-REQUESTS PRN MEDICATION. LOWER EXTREMETIES APPEAR EDEMATOUS. PT REPORTS AMBULATING DURING DAY. DENIES FURTHER NEEDS, WILL CONTINUE TO MONITOR.
[2019-04-16] VITALS: BP 124/55
--- NOTE | 2019-04-16 03:47 | NUR ---
I have reviewed this patient and I concur with the Shift Assessment completed by the Licensed Practical Nurse today this shift.
[2019-04-16 04:00] VITALS: BP 103/46
[2019-04-16 06:58] LABS: BASOPHILS 0.2 % (0-2); EOSINOPHILS 1.8 % (0-7); HEMATOCRIT 28.9 % (42.0-54.0); HEMOGLOBIN 8.7 g/dL (13.5-17.5); IMMATURE GRANULOCYTES 0.2 % (0-5); LYMPHOCYTES 21.2 % (15-50); MCH 25.4 pg (26.0-34.0); MCHC 30.1 g/dL (31.0-37.0); MCV 84.5 fL (80.0-100.0); MEAN PLATELET VOLUME 9.1 fL (7.4-10.4); MONOCYTES 9.3 % (2-11); NEUTROPHILS 67.3 % (40-80); PLATELET COUNT 186 10x3/uL (130-400); RBC 3.42 10x6/uL (4.20-6.10); RDW 21.5 % (11.5-14.5); WBC 5.5 10x3/uL (4.8-10.8)
[2019-04-16 07:07] LABS: ANION GAP 6.4 mmol/L (8-16); CALCIUM 8.2 mg/dL (8.5-10.1); CARBON DIOXIDE 29.3 mmol/L (21.0-32.0); CREATININE - SERUM 1.3 mg/dL (0.6-1.3)
[2019-04-16 07:15] LABS: POTASSIUM - SERUM 3.7 mmol/L (3.5-5.1)
--- NOTE | 2019-04-16 07:40 | NUR ---
PT RESTING IN BED. NO SIGNS OF DISTRESS. IV TO LEFT FORARM PATENT NO REDNESS OR TENDERNESS. HAS 5 LAP SITES TO ABDOMEN. CLEAN AND INTACT. HAS TREJO NO KINKS PATENT. DENIES ANY FURTHER NEED AT THIS TIME. CALL LIGHT IN REACH. BED LOW POSTIION. NO FAMILY AT BEDSIDE AT THIS TIME.
[2019-04-16] MEDS ORDERED: ZOFRAN ODT4 MG/UDTAB PO (13:14)
[2019-04-16] MEDS ORDERED: HYDROCODON-ACE1 EAC7 PO (13:14)
[2019-04-16 13:26] VITALS: BP 118/57
--- NOTE | 2019-04-16 14:38 | MORECARE ---
CASE MANAGEMENT DISCHARGE SUMMARY PATIENT: RASHAWN WATSON UNIT: [id number] ADM DATE: 04/14/19 AGE: 84 : 36 SEX: M ROOM/BED: D.2214 AUTHOR: NADIA DELGADO PHYSICIAN: REFERRING PHYSICIAN: JANICE ESPANA MD DATE OF SERVICE: 04/16/19 Discharge Plan Patient Name: RASHAWN WATSON Facility: [facility]:[place] : 1935 Planned Disposition: Home Anticipated Discharge Date: Discharge Date: Expected LOS: Initial Reviewer: [email or web address] Initial Review Date: 04/14/2019 Generated: 04/16/19 3:38 pm Comments DCP- Discharge Planning Updated by [email or web address]: Rose Betancur on 04/16/19 1:[address] Patient Name: RASHAWN WATSON Admission Status: Elective Accout number: [id number] Admission Date: 04-14-2019 : 1935 Admission Diagnosis: Attending: JANICE ESPANA Current LOS: 2 Anticipated DC Date: Planned Disposition: Home Primary Insurance: MEDICARE A & B Discharge Planning Comments: CM met with patient to complete initial dc planning assessment. CM educated patient on the CM role and verbal consent given by patient to complete assessment. Patient lives at home with his daughter and where he is independent with his care. At discharge patient plans to return home and feels this is a safe discharge. CM discussed availability of home health, rehab services, and medical equipment. Patient denied known discharge needs at this time. He does have a walker and a cane. He stated that his daughter is a MD and will help with anything he might need. CM will continue to follow and will assist as needed with dc plans/needs. Internet Marketing Strategist: Rose Betancur DCPIA - Discharge Planning Initial Assessment Updated by [email or web address]: Rose Betancur on 04/16/19 2:34 pm * Is the patient Alert and Oriented? Yes * How many steps to enter\exit or inside your home? 14 * PCP [facility]UNGARIAN * [facility] * Preadmission Environment Home with Family * ADLs Independent * Equipment Cane Walker * List name and contact numbers for known caregivers / representatives who currently or will assist patient after discharge: EARLINE (DAUGHTER) [phone] * Verbal permission to speak to the caregivers and representatives has been obtained from the patient. N/A * Community resources currently utilized None * Additional services required to return to the preadmission environment? Yes * Can the patient safely return to the preadmission environment? Yes * Has this patient been hospitalized within the prior 30 days at any hospital? No Patient Name: RASHAWN WATSON Page 11429 at 1438 All edits/amendments must be made on the electronic document DICTATION DATE: 04/16/191437 FREEZER ASSISTANT: LISA 04/16/191437 RPT#: [id number] DC DATE: STATUS: ADM IN [facility] [address] [place] [address] END OF REPORT
[2019-04-16 16:13] VITALS: BP 114/58
--- NOTE | 2019-04-16 19:17 | NUR ---
DISCHARGE INSTRUCTIONS GIVEN. SEEMS TO UNDERSTAND. DENIES ANY NEED AT THIS TIME. LEFT WITH HOSPITAL STAFF TO GO HOME IN PERSONAL RIDE WITH SON. IV OUT TIP TREJO OUT
--- NOTE | 2019-04-17 11:36 | MORECARE ---
CASE MANAGEMENT DISCHARGE SUMMARY PATIENT: RASHAWN WATSON UNIT: [id number] ADM DATE: 04/14/19 AGE: 84 : 36 SEX: M ROOM/BED: D.2214 AUTHOR: NADIA DELGADO PHYSICIAN: REFERRING PHYSICIAN: JANICE ESPANA MD DATE OF SERVICE: 04/17/19 Discharge Plan Patient Name: RASHAWN WATSON Facility: [facility]:[place] : 1935 Planned Disposition: Home Anticipated Discharge Date: Discharge Date: 04/16/2019 Expected LOS: Initial Reviewer: [email or web address] Initial Review Date: 04/14/2019 Generated: 04/17/19 12:36 pm DCP- Discharge Planning Updated by [email or web address]: Rose Betancur on 04/16/19 1:[address] Patient Name: RASHAWN WATSON Admission Status: Elective Accout number: [id number] Admission Date: 04-14-2019 : 1935 Admission Diagnosis: Attending: JANICE ESPANA Current LOS: 2 Anticipated DC Date: Planned Disposition: Home Primary Insurance: MEDICARE A & B Discharge Planning Comments: CM met with patient to complete initial dc planning assessment. CM educated patient on the CM role and verbal consent given by patient to complete assessment. Patient lives at home with his daughter and where he is independent with his care. At discharge patient plans to return home and feels this is a safe discharge. CM discussed availability of home health, rehab services, and medical equipment. Patient denied known discharge needs at this time. He does have a walker and a cane. He stated that his daughter is a MD and will help with anything he might need. CM will continue to follow and will assist as needed with dc plans/needs. Boat Engines Installer: Rose Betancur DCPIA - Discharge Planning Initial Assessment Updated by [email or web address]: Rose Betancur on 04/16/19 2:34 pm * Is the patient Alert and Oriented? Yes * How many steps to enter\exit or inside your home? 14 * PCP DANISH * Pharmacy [facility] [address] * Preadmission Environment Home with Family * ADLs Independent * Equipment Cane Walker * List name and contact numbers for known caregivers / representatives who currently or will assist patient after discharge: EARLINE (DAUGHTER) [phone] * Verbal permission to speak to the caregivers and representatives has been obtained from the patient. N/A * Community resources currently utilized None * Additional services required to return to the preadmission environment? Yes * Can the patient safely return to the preadmission environment? Yes * Has this patient been hospitalized within the prior 30 days at any hospital? No Last DP export: 04/16/19 1:38 p Patient Name: RASHAWN WATSON Page 73292 at 1136 All edits/amendments must be made on the electronic document DICTATION DATE: 04/17/19 1136 STAKING ENGINEER: LISA 04/17/19 1136 RPT#: [id number] NC DATE:04/16/19 STATUS: DIS IN [facility] [address] [place] [address] END OF REPORT
--- NOTE | 2019-04-19 07:34 | CN ---
PATIENT NAME:BALJIT WATSON MEDICAL RECORD: [id number] : 37 LOCATION:D.MS Garcia2214 ADMIT DATE: 04/14/19 ACCOUNT: [id number] CONSULTING PHYSICIAN: JANELLE OLIVEIRA MD REFERRING PHYSICIAN: JANICE ESPANA MD DATE OF CONSULTATION: 04/14/2019 ADMITTING PHYSICIAN: Janice Espana MD REASON FOR CONSULTATION: Medical management postoperative. HISTORY OF PRESENT ILLNESS: The patient is an 84-year-old male who is first day postop from the laparoscopic paraesophageal hernia repair, laparoscopic partial gastric resection, EGD, and excisional biopsies of perineal lesion. 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 Also, his perianal lesion appears dysplastic, but pathology is pending at this time. Dr. Thornton from oncology did see the patient as well as awaiting final pathology before giving any treatment. Postoperative this morning, Baljit said he is feeling pretty well. He has had little pain on deep inspiration, but no hemoptysis. Denies nausea. PAST MEDICAL HISTORY: Morbid obesity, remote pulmonary embolism, DVT with multiple IVC filter, chronic lymphedema, recent anemia due to GI blood loss and above findings of gastric tumor, post-transfusions, history of CAD, post-PTCA of the LAD and RCA by Dr. Shepherd in 2012, BPH, hypothyroidism, essential hypertension, erectile dysfunction, pneumonia 2010, hyperlipidemia, cervical and lumbar canal stenosis with neurogenic claudication and chronic lower extremity pain, history of LESI per Dr. Lemus, recent aspiration pneumonia, history of PAF, hypothyroidism, perianal dysplastic lesion. LAE with echo 55% ejection fraction February of 2019 and mild calcific aortic stenosis. PAST SURGICAL HISTORY: Recent paraesophageal hernia repair and partial gastrectomy with excision of perirectal lesion, history of penile implant placement, retinal detachment with laser retinal therapy. PTCA LAD, RCA in 2012. IVC filter placement. ALLERGIES: None. SOCIAL HISTORY: He is , retired, and lives with his . His daughter is a physician. He is a nonsmoker, nondrinker currently. HOME MEDICATIONS: Flexeril 10 mg q.8 hours p.r.n. muscle spasm; Xarelto 15 mg p.o. b.i.d.; Cardura 4 mg at bedtime; pravastatin 20 mg at bedtime; gabapentin 300 mg p.o. q.a.m., 900 mg p.o. at bedtime; Chapman 5/325 one bedtime p.r.n. severe pain; Lasix 40 mg p.o. b.i.d.; Protonix 40 mg p.o. daily; Proscar 5 mg p.o. daily. REVIEW OF SYSTEMS: GENERAL: Mildly fatigued, but alert. HEENT: No recent visual change, sinus congestion, or sore throat. RESPIRATORY: Denies shortness of breath. He said if he takes deep breath, he has a sharp pain in his right upper scapular area postoperative. No hemoptysis. CARDIAC: No palpitation, PND, orthopnea, or claudication. Chronic peripheral edema as mentioned. GASTROINTESTINAL: Denies nausea. Denies flatus. Moderate abdominal pain CONSULT REPORT [id number] BALJIT WATSON postoperative. GENITOURINARY: Has David in place, has nocturia chronically and is on alpha pam and Proscar for BPH. No dysuria. No history of high PSA. MUSCULOSKELETAL: Chronic lumbar back pain and neurogenic claudication in both legs. INTEGUMENTARY: No rash or itching. PSYCHIATRIC: Denies depressed mood. PHYSICAL EXAMINATION: VITAL SIGNS: His temperature is 99.1, blood pressure is 103/44 with a sat of 88% on 2 liters, respiratory rate of 18. GENERAL: The patient is alert and oriented. EYES: Clear. NECK: Unremarkable. CHEST: He has distant breath sounds bilaterally and difficult to take a deep breath due to pain. HEART: Regular rate. ABDOMEN: Obese, soft, surgical dressings are in place with minimal bowel sounds. RECTAL: Deferred. EXTREMITIES: He has chronic 4+ lymphedema below his knees bilaterally. No obvious wounds were appreciated. His has leg wrappings on both legs. NEUROLOGIC: Oriented to person, place, and time. Cranial nerves are grossly intact. Gait was not tested. No localizing motor or sensory deficits are appreciated. LABORATORY DATA: Lab this morning is pending. His preop H&H was 10.9 and 34.9. BMP showed a BUN of 20, creatinine of 1.2, potassium of 4.4. Liver functions are pending. Pathology is pending. DIAGNOSTIC DATA: Preoperative chest x-ray showed no acute cardiopulmonary disease. ASSESSMENT: 1. 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 2. Morbid obesity. 3. History of hypertension; benign prostatic hypertrophy; chronic lymphedema; aspiration pneumonia in February of 2019; neurogenic claudication; chronic low back pain; history of bilateral pulmonary emboli remotely, on chronic anticoagulation for that and bilateral DVTs; history of CAD post-PTCA, LAD, RCA; hyperlipidemia. PLAN: We will add pulmonary toilet to help with the patient's postoperative hypoxemia. Awaiting pathology. We will follow with you. TRANSINT:[id number] Voice Confirmation ID: [id number] DOCUMENT ID: [id number] CONSULT REPORT [id number] BALJIT WATSON TIMOTHY MD at 0734 CC: [id number] DICTATION DATE: 04/15/19719 AGRICULTURAL LABOR CAMP MANAGER: 04/15/19 0841 DIS IN 04/16/19 [facility] [address] [place] [address]
--- NOTE | 2019-04-23 12:02 | OP ---
PATIENT NAME: RASHAWN WATSON MEDICAL RECORD: [id number] :37 LOCATION:D.MS Garcia2214 ADMISSION DATE:04/14/19 SURGEON: JANICE ESPANA MD DATE OF OPERATION: 04/14/2019 PREOPERATIVE DIAGNOSES: 1. Paraesophageal hernia. 2. 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 3. Perineal skin lesion. POSTOPERATIVE DIAGNOSES: 1. Paraesophageal hernia. 2. 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 3. Perineal skin lesion. PROCEDURES: 1. EGD. 2. Incisional biopsy of peritoneal lesion. 3. I assisted Dr. Vegas with the laparoscopic paraesophageal hernia repair as well as a laparoscopic partial gastrectomy. I was the surgeon on the EGD as well as the incisional biopsies of the perineal lesion. My involvement in the laparoscopic procedures included placing 2 of the laparoscopic trocars, running some of the camera, retraction of tissues, retraction of the suture, irrigation and aspiration, Harmonic scalpel dissection along the greater curve of the stomach and on the posterior aspect of the stomach, dividing the muscles as well as the gastrosplenic ligament. Identification and clearance of the left mani of the diaphragm, blunt dissection up into the mediastinum. Retraction of the gastric tissue during the linear cutting stapling of the stomach. OPERATIVE COURSE: As a surgeon, I performed the EGD. A bite block was inserted. A gastroscope was inserted into the mouth. It was advanced easily into the hypopharynx. The esophagus was easily intubated as were the stomach and duodenum. I then turned the light off. We had used CO2 insufflation as it diffuses quickly. We used the gastroscope as a stent along which we could staple the stomach. I then inflated the gastric tube, each time a portion of the stomach had been removed. We did this after the stomach had been submerged with saline. There was no bubbling of CO2 and therefore no evidence of leakage along the staple line. I then returned after the EGD had been performed and scrubbed back in and participated in the closure of the incisions. After the dressings were applied, the patient was then turned onto his side. The skin lesion was easily identified. Two elliptical incisions were accomplished. Meticulous hemostasis was achieved with electrocautery. The incision was closed in 2 layers with interrupted 3-0 Vicryls for the deep dermis as well as multiple interrupted horizontal mattress 3-0 Vicryls for the skin. The excised defect was 4.2 x 3.2 cm including skin and subcutaneous tissue as well as the skin lesion. TRANSINT:[id number] Voice Confirmation ID: [id number] DOCUMENT ID: [id number] OPERATIVE REPORT [id number] [facility] MD at 1202 CC: [id number] DICTATION DATE: 04/22/19 1453 ACCOUNTS RECEIVABLE COORDINATOR: 04/22/19 2337 DIS IN 04/16/19 [facility] [address] [place] [address]
== END 2019-04-16 19:19 | disposition home or self-care (01) | DRG 328 ==
LOC: D.MS 04-14 06:20 → D.SDCHOLD 04-14 06:20 → D.MS 04-14 12:40
PROVIDERS: Anesthesiology; Family Medicine; Surgery; ADMIT Surgery; ATTEND Surgery
PROC: 0BQT4ZZ Repair Diaphragm, Percutaneous Endoscopic Approach (ICD-10-PCS; principal; 2019-04-14 08:00)
PROC: 0DB64ZZ Excision of Stomach, Percutaneous Endoscopic Approach (ICD-10-PCS; 2019-04-14 08:00)
PROC: 0HB9XZX Excision of Perineum Skin, External Approach, Diagnostic (ICD-10-PCS; 2019-04-14 08:00)
DX: K31.9 Disease of stomach and duodenum, unspecified (principal); K44.9 Diaphragmatic hernia without obstruction or gangrene; L98.8 Other specified disorders of the skin and subcutaneous tissue; D50.9 Iron deficiency anemia, unspecified; E66.9 Obesity, unspecified; Z68.30 Body mass index [BMI] 30.0-30.9, adult; I10 Essential (primary) hypertension; N40.0 Benign prostatic hyperplasia without lower urinary tract symptoms; M54.9 Dorsalgia, unspecified; E78.5 Hyperlipidemia, unspecified; I25.10 Atherosclerotic heart disease of native coronary artery without angina pectoris; I95.9 Hypotension, unspecified; E03.9 Hypothyroidism, unspecified

== ENCOUNTER 2019-04-23 06:06 | Day surgery (SDC) | payer MEDICARE ==
[~2019-04-23] VITALS: Ht 177.8 cm; Wt 95.3 kg
[~2019-04-23 06:06] MED LIST changes: +PROSCAR5 MG PO; +PROTONIX40 MG PO; +SYNTHROID125 MCG PO; +ZOFRAN ODT4 MG/UDTAB PO
[2019-04-23 07:31] VITALS: BP 126/76; Ht 177.8 cm; Wt 95.3 kg
[2019-04-23 07:32] LABS: ANION GAP 10.4 mmol/L (8-16); CALCIUM 8.2 mg/dL (8.5-10.1); CARBON DIOXIDE 27.5 mmol/L (21.0-32.0); CREATININE - SERUM 1.2 mg/dL (0.6-1.3)
[2019-04-23 07:36] LABS: POTASSIUM - SERUM 2.9 mmol/L (3.5-5.1)
[2019-04-23 08:11] LABS: MAGNESIUM - SERUM 1.9 mg/dL (1.8-2.4)
[2019-04-23 08:42] LABS: BASOPHILS 0.4 % (0-2); EOSINOPHILS 7.4 % (0-7); HEMATOCRIT 30.5 % (42.0-54.0); HEMOGLOBIN 9.4 g/dL (13.5-17.5); IMMATURE GRANULOCYTES 0.6 % (0-5); LYMPHOCYTES 19.2 % (15-50); MCHC 30.8 g/dL (31.0-37.0); MCV 84.3 fL (80.0-100.0); MEAN PLATELET VOLUME 9.7 fL (7.4-10.4); MONOCYTES 8.7 % (2-11); NEUTROPHILS 63.7 % (40-80); RBC 3.62 10x6/uL (4.20-6.10); RDW 20.5 % (11.5-14.5); WBC 5.4 10x3/uL (4.8-10.8)
[2019-04-23 08:49] LABS: PLATELET COUNT 231 10x3/uL (130-400)
--- NOTE | 2019-04-23 15:45 | NUR ---
TREJO CATHETER PLACED DUE TO INABILITY TO VOID PER ORDER. APPROX 400 CC YELLOW URINE DRAINS TO TREJO BAG. PIV DC'D WITH TIP INTACT. DISCHARGE INSTRUCTIONS REVIEWED WITH DAUGHTER AND SPOUSE
--- NOTE | 2019-04-27 10:19 | OP ---
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 PROCEDURES: Wide excision of anal/perineal adenocarcinoma. The dimensions of debridement, including margins, was 8 cm in the medial and lateral dimension and 7 cm in the anterior/posterior dimension. The excised defect was roughly the shape of an upside down heart with the patient in the lithotomy position. The wide excision included skin and subcutaneous tissue as well as some of the anal mucosa; however, the malignancy did not appear to involve the anal sphincter. The closure was complex. SURGEON: Janice Espana MD LOTTERY SALES CLERK: None. BLOOD LOSS: 200 cc. ANESTHESIA: General. COMPLICATIONS: None. The risks, possible complications and alternatives to the procedure were explained to the patient. He elected to proceed. The patient has fecal incontinence, which is likely due to some spinal stenosis. He has almost no anal sphincter tone prior to the procedure. This was noted on his colonoscopy where no large bowel malignancy was noted. We had to kind of pinch his anus together in order for it to retain air during the colonoscopy. 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 I think it was probably lost between one of the staple lines. OPERATIVE COURSE: The patient was conveyed to the operating room electively on 04/23/2019. General anesthesia was induced by the anesthesia staff. The patient was placed in the lithotomy position. The buttocks were taped laterally. I began to excise indurated skin and subcutaneous tissue. I included lateral, anterior and posterior margins as well as a deep margin. These were sent for frozen section evaluation. I excised some additional indurated skin as I felt that it might harbor a malignancy as well. I excised down into the anal mucosa. The anal sphincters were noted. They were undamaged during the operation. Once we received confirmation that the margins were negative, I then went about closing the defect. It was closed in a triangular fashion. The deep adipose tissue was closed with interrupted 2-0 Vicryls. The subcutaneous dermis was closed with interrupted 2-0 Vicryls. This formed essentially a kind of triangular shape. I then completed the cutaneous and mucosal closure with OPERATIVE REPORT [id number] WALTERRASHAWN Andrew multiple interrupted horizontal mattress 2-0 Vicryls. A sterile dressing was applied as well as Dermabond. The patient was then extubated and conveyed to post-anesthesia care unit where he was in stable condition. He is going to be following up with his oncologist, Dr. Mcallister. TRANSINT:[id number] Voice Confirmation ID: [id number] DOCUMENT ID: [id number] 04/26/2019 Edited for board certified music therapist errors, [email or web address]. JANICE ESPANA MD at 1019 CC: HUYEN MCALLISTER MD, [place]IAN,JANELLE Ordonez, CHAMP GALLOWAY and YASEMIN, [id number] DICTATION DATE: 04/24/19 1514 ADMINISTRATIVE OFFICE SPECIALIST: 04/24/19 2252 [facility] 04/23/[address] [id number]
== END 2019-04-23 15:53 | disposition home or self-care (01) ==
LOC: D.OPS 06:06 → D.PAN 08:30 → D.OPS 15:00
PROVIDERS: Anesthesiology; ATTEND Surgery
DX: C44.500 Unspecified malignant neoplasm of anal skin (principal)